=== PATIENT | female | born 1955 | race Caucasian/White ===

== ENCOUNTER 2019-10-12 08:09 | Outpatient (CLI) | payer BC, SELFPAY ==
--- NOTE | ~2019-10-12 | MM_ITS ---
EXAMINATION: MM screening [place] BI w cindy HISTORY: Screening mammogram TECHNIQUE: Craniocaudal and mediolateral oblique 3-D tomosynthesis images were obtained and synthetic 2-D images were generated. CAD analysis was submitted and interpreted. COMPARISON: Comparison to multiple prior studies sequentially, with oldest reviewed study dated 09/2014. BREAST PARENCHYMAL COMPOSITION: There are scattered areas of fibroglandular density. FINDINGS: Stable appearance to right breast asymmetry and left breast mass. There is no evidence of s uspicious mass, calcification, or architectural distortion to suggest malignancy in either breast. Th ere has been no suspicious interval change. IMPRESSION: 1. No mammographic evidence of malignancy. 2. Recommend routine screening mammography in one year. BI-RADS CATEGORY 2 - BENIGN FINDINGS Reviewed, dictated and finalized at location A. GE REGISTER NURSE
== END 2019-10-12 08:10 | disposition home or self-care (01) ==
PROVIDERS: PCP Family Medicine; Visit Provider Family Medicine
DX: Z12.31 Encounter for screening mammogram for malignant neoplasm of breast (principal)
CPT/HCPCS: 77063; 77067

== ENCOUNTER 2020-07-18 12:44 | Outpatient (CLI) | payer MEDICARE, SELFPAY ==
[2020-07-18 13:03] LABS: Basophils Absolute Auto 0.1 K/mm3 (0.0-0.1); Basophils Percent Auto 0.9 % (0.2-1.2); Eosinophils Absolute Auto 0.1 K/mm3 (0-0.3); Hematocrit 49.6 % (37.0-47.0); Hemoglobin 16.6 g/dL (12.0-15.0); Immature Granulocyte Absolute 0.05 K/mm3 (0.00-0.031); Immature Granulocyte Percent A 0.5 % (0-0.5); Lymphocytes Absolute Auto 4.35 K/mm3 (0.9-3.2); Lymphocytes Percent Auto 41.7 % (18.3-44.2); Mean Corpuscular HGB Conc 33.5 g/dl (32-36); Mean Corpuscular Hemoglobin 29.6 pg (26-34); Mean Corpuscular Volume 88.4 fl (80-100); Mean Platelet Volume 9.5 fl (7.4-10.4); Monocytes Absolute Auto 0.9 K/mm3 (0.1-0.6); Monocytes Percent Auto 8.8 % (2.6-8.5); Neutrophils Absolute Auto 4.9 K/mm3 (1.3-6.7); Neutrophils Percent Auto 47.1 % (45.5-73.1); Platelet Count Result 241 k/mm3 (150-375); Red Blood Count 5.61 M/mm3 (4.2-5.4); Red Cell Distribution Width 13.1 % (11.5-14.5); White Blood Count 10.4 K/mm3 (4.5-10.0)
[2020-07-19 09:11] LABS: Blood Urea Nitrogen 13 mg/dL (8-26); Carbon Dioxide 20 mmol/L (22-30); Chloride 108 mmol/L (98-109); Estimated Glomerular Filt Rate > 60; Glucose 133 mg/dL (70-105); Potassium 3.4 mmol/L (3.5-4.9); Sodium 140 mmol/L (138-146)
== END 2020-07-18 12:45 | disposition home or self-care (01) ==
LOC: ANHLAB 12:49
PROVIDERS: PCP Family Medicine; Visit Provider Internal Medicine Hematology & Oncology
DX: D75.1 Secondary polycythemia (principal)
CPT/HCPCS: 36415; 80048; 85025

== ENCOUNTER 2020-12-11 16:31 | Outpatient (CLI) | payer MEDICARE, SELFPAY ==
--- NOTE | ~2020-12-11 | MM_ITS ---
EXAMINATION: MM screening [place] BI w cindy HISTORY: Screening TECHNIQUE: Craniocaudal and mediolateral oblique 3-D tomosynthesis images were obtained and synthetic 2-D images were generated. CAD analysis was submitted and interpreted. COMPARISON: Comparison to multiple prior studies sequentially, with oldest reviewed study dated 11/02. BREAST PARENCHYMAL COMPOSITION: Breast composed of scattered areas of fibroglandular density. FINDINGS: Bilateral breast asymmetries are stable. There is no evidence of suspicious mass, calcific ation, or architectural distortion to suggest malignancy in either breast. There has been no suspicio us interval change. IMPRESSION: 1. No mammographic evidence of malignancy. 2. Recommend routine screening mammography in one year. BI-RADS Category 2: Benign finding(s). Reviewed, dictated and finalized at location A.
== END 2020-12-11 16:32 | disposition home or self-care (01) ==
PROVIDERS: PCP Family Medicine; Visit Provider Family Medicine
DX: Z12.31 Encounter for screening mammogram for malignant neoplasm of breast (principal)
CPT/HCPCS: 77063; 77067

== ENCOUNTER 2022-06-10 12:58 | Outpatient (CLI) | payer MEDICARE, SELFPAY ==
--- NOTE | ~2022-06-10 | MM_ITS ---
EXAMINATION: MM screening [place] BI w cindy HISTORY: Screening TECHNIQUE: Craniocaudal and mediolateral oblique 3-D tomosynthesis images were obtained and synthetic 2-D images were generated. CAD analysis was submitted and interpreted. COMPARISON: Comparison to multiple prior studies sequentially, with oldest reviewed study dated 11/02. BREAST PARENCHYMAL COMPOSITION: There are scattered areas of fibroglandular density. FINDINGS: Bilateral breast asymmetries and calcifications are stable. There is no evidence of suspici ous mass, calcification, or architectural distortion to suggest malignancy in either breast. There martinez s been no suspicious interval change. IMPRESSION: 1. No mammographic evidence of malignancy. 2. Recommend routine screening mammography in one year. BI-RADS Category 2: Benign finding(s). Reviewed, dictated and finalized at location A.
== END 2022-06-10 12:59 | disposition home or self-care (01) ==
PROVIDERS: PCP Family Medicine; Visit Provider Family Medicine
DX: Z12.31 Encounter for screening mammogram for malignant neoplasm of breast (principal)
CPT/HCPCS: 77063; 77067

== ENCOUNTER 2022-07-01 13:12 | Outpatient (CLI) | payer MEDICARE, SELFPAY ==
--- NOTE | ~2022-07-01 | DEXA_ITS ---
Bone Density Report Name: JACKLYN ORTIZ Age: 66 Sex: Female Ethnicity: White Date of : 1955 Indication: postmenopausal osteoporosis; monitoring treatment; parental hip fracture; prior fracture; hysterectomy; Referring Provider: CAROL RENTERIA Study: Bone densitometry was performed. Exam Date: July 01, 2022 Accession number: [id number] Bone Density: Region BMD T-score Z-score Classification AP Spine(L1-L4) 0.750 -2.7 -0.8 Osteoporosis Femoral Neck (Left) 0.400 -4.0 -2.4 Osteoporosis Total Hip (Left) 0.446 -4.1 -2.7 Osteoporosis Femoral Neck (Right) 0.456 -3.5 -1.9 Osteoporosis Total Hip (Right) 0.500 -3.6 -2.3 Osteoporosis Total Hip Mean 0.473 -3.9 -2.5 Osteoporosis World Health Organization criteria for BMD impression classify patients as: Normal (T-score at or above -1.0), Osteopenia (T-score between -1.0 and -2.5), or Osteoporosis (T-score at or below -2.5). 10-year Fracture Risk: FRAX not reported because: Some T-score for Spine Total or Hip Total or Femoral Neck at or below -2.5 Treated for osteoporosis Previous Exams: Region Exam Age BMD T-score BMD Change BMD Change Date g/cm2 vs Baseline vs Previous AP Spine (L1-L4) 07/01/2022 66 0.750 -2.7 -0.017 (-2.2%) -0.017 (-2.2%) 04/09/2017 61 0.767 -2.5 Total Hip(Left) 07/01/2022 66 0.446 -4.1 -0.182 (-29.0% -0.182 (-29.0% 04/09/2017 61 0.628 -2.6 Total Hip(Right) 07/01/2022 66 0.500 -3.6 -0.100 (-16.6% -0.100 (-16.6% 04/09/2017 61 0.599 -2.8 *Denotes significance at 95% confidence level, LSC for AP Spine = 0.022 g/cm2, LSC for Total Hip = 0.027 g/cm2 # Denotes dissimilar scan types or analysis methods Clinical Information Provided by Patient: Has had a low trauma fracture Parent has had a hip fracture Is being treated for osteoporosis Has used the following medications: Vitamin D, Calcium Has the following medical conditions: Hysterectomy Patient maximum height was 68 Menopause Age: 42 No regular weight bearing exercise Does not regularly consume dairy products Drinks caffeinated beverages Onset of menses at age 12 Number of children 0 Impression: The patient has established osteoporosis, based on the Left Total Hip T-score and the existence of a prior fracture. The patient has risk factors, including: parental hip fracture, previous fracture. The BMD for the Total Hip(Right) decreased, changing by -16.6% since the last DXA exam. Discussion: SI
== END 2022-07-01 13:13 | disposition home or self-care (01) ==
PROVIDERS: PCP Family Medicine; Visit Provider Nurse Practitioner Gerontology
DX: M81.0 Age-related osteoporosis without current pathological fracture (principal)
CPT/HCPCS: 77080

== ENCOUNTER 2023-02-23 01:46 | Day surgery (SDC) | payer MEDICARE, SELFPAY ==
[2023-02-12 11:30] VITALS: BMI 25.1
[2023-02-23 11:08] VITALS: BP 106/85; PULSE 76; RESP 16; TEMP 36.1; O2SAT 95
--- NOTE | 2023-02-23 11:08 | PM.HPGS ---
History of Present Illness History of Present Illness Consent: Risks, benefits, and alternatives have been discussed and questions answered. Patient agrees to proceed with procedure. Chief complaint: positive cologuard test Narrative: Nicanor Serna is a 67 year old female Presents for colonoscopy. Patient recently found have a positive Cologuard test. Patient reports she has had no bleeding. Her family history noncontributory. She does have a tendency towards constipation the improves on taking milk of magnesia. Patient presents today for colonoscopy to evaluate positive Cologuard test. Review of Systems Review of Systems: Review of systems noncontributory. 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) Hepatic steatosis PAD (peripheral artery disease) Surgical History Surgical History Hx of hysterectomy S/P peripheral artery angioplasty with stent placement Family History Family History Mother Hypertension Cerebrovascular accident Sibling Hypertension Cerebrovascular accident Father Family history of lung cancer, Onset Age: 63 Patient's father is Social History Social History (Updated 01/28/23 @ 09:48 by Ana Paula Umana) Social History: Smoking packs per day: 0.5 Smoking cigarettes per day: 10.0 Years smoked: 40 Smoking pack-years: 20.00 Smoking status: Current every day smoker Tobacco type: cigarettes Second hand tobacco smoke exposure: Yes Smoking end date: 08/09/16 Alcohol intake: never Substance use: never Substance use type: does not use Lack of Transportation: No Lack of Food: Never True Current Housing: I Have Housing Concerned About Future Housing: No Difficulty Paying Gas/Electric Bills: No Difficulty Paying for Meds: No Currently Unemployed: YES Education: Decline to Answer Difficulty w/ Childcare or Family Care: No Living arrangements: with family Occupation/Education: retired Gender identity (if verbalized by the patient): Female Sexual Orientation (if Verbalized by the Patient): Straight or Heterosexual Spiritual care concerns: No Meds Home Medications and Allergies Home Medications Medication Instructions Recorded Confirmed Type aspirin 325 mg tablet 325 mg PO DAILY 10/17/19 02/12/23 History umeclidinium 62.5 mcg-vilanterol 1 inh inhalation DAILY #60 ea 06/11/21 02/12/23 Rx 25 mcg/actuation powdr for inhalation (Anoro Ellipta) trazodone 50 mg tablet See Rx Instructions .Route 10/17/21 02/12/23 Rx .COMPLEX #90 tabs buspirone 5 mg tablet See Rx Instructions .Route 11/18/21 02/12/23 Rx .COMPLEX #90 tabs alendronate 70 mg tablet See Rx Instructions .Route 06/29/22 02/12/23 Rx .COMPLEX #12 tabs clonidine HCl 0.2 mg tablet See Rx Instructions .Route 12/07/22 02/12/23 Rx .COMPLEX #180 tabs amlodipine 10 mg tablet See Rx Instructions .Route 01/21/23 02/12/23 Rx .COMPLEX #90 tabs clopidogrel 75 mg tablet See Rx Instructions .Route 01/21/23 02/12/23 Rx .COMPLEX #90 tabs varenicline 0.5 mg (11)-1 mg (42) See Rx Instructions PO PER PKG DIR 01/28/23 02/12/23 Rx tablets in a dose pack #53 ea atorvastatin 20 mg tablet See Rx Instructions .Route 02/01/23 02/12/23 Rx .COMPLEX #100 tabs sodium,potassium,mag sulfates 17.5 See Rx Instructions PO .COMPLEX 02/01/23 02/12/23 Rx gram-3.13 gram-1.6 gram oral soln #354 mL (Suprep Bowel Prep Kit) biotin 10,000 mcg capsule 10,000 mcg PO DAILY 02/12/23 02/12/23 History cholecalciferol (vi
[2023-02-23] MEDS: LACTATED RINGERS 1,000 ML 150 ML IV CONT (11:47)
--- NOTE | 2023-02-23 12:20 | WPDANESEPPF ---
Anes - Initial Pre Proc Eval Procedure: Operation Date: 02/23/23 12:30 Proposed Procedures p Colonoscopy - Maurizio Delgado MD Date/Time: 02/23/23 12:20 Surgeon: Maurizio Delgado MD Pre Op Diagnosis: positive cologuard test Patient Data Age: 67 Gender: F Height: 1.73 m Weight: 72.4 kg Last Vital Signs Temp 97.0 F L 02/23/23 11:08 Pulse 76 02/23/23 11:08 Resp 16 02/23/23 11:08 BP 106/85 02/23/23 11:08 Pulse Ox 95 02/23/23 11:08 O2 Del Method Room Air 02/23/23 11:08 Allergies Allergy/AdvReac Type Severity Reaction Status Date / Time No Known Allergies Allergy Verified 02/23/23 11:07 Home Medications Medication Instructions Recorded Confirmed Type aspirin 325 mg tablet 325 mg PO DAILY 10/17/19 02/23/23 History umeclidinium 62.5 mcg-vilanterol 1 inh inhalation DAILY #60 ea 06/11/21 02/23/23 Rx 25 mcg/actuation powdr for inhalation (Anoro Ellipta) trazodone 50 mg tablet See Rx Instructions .Route 10/17/21 02/23/23 Rx .COMPLEX #90 tabs buspirone 5 mg tablet See Rx Instructions .Route 11/18/21 02/23/23 Rx .COMPLEX #90 tabs alendronate 70 mg tablet See Rx Instructions .Route 06/29/22 02/23/23 Rx .COMPLEX #12 tabs clonidine HCl 0.2 mg tablet See Rx Instructions .Route 12/07/22 02/23/23 Rx .COMPLEX #180 tabs amlodipine 10 mg tablet See Rx Instructions .Route 01/21/23 02/23/23 Rx .COMPLEX #90 tabs clopidogrel 75 mg tablet See Rx Instructions .Route 01/21/23 02/23/23 Rx .COMPLEX #90 tabs varenicline 0.5 mg (11)-1 mg (42) See Rx Instructions PO PER PKG DIR 01/28/23 02/23/23 Rx tablets in a dose pack #53 ea atorvastatin 20 mg tablet See Rx Instructions .Route 02/01/23 02/23/23 Rx .COMPLEX #100 tabs sodium,potassium,mag sulfates 17.5 See Rx Instructions PO .COMPLEX 06/26/23 07/18/23 Rx gram-3.13 gram-1.6 gram oral soln #354 mL (Suprep Bowel Prep Kit) biotin 10,000 mcg capsule 10,000 mcg PO DAILY 02/12/23 02/23/23 History cholecalciferol (vitamin D3) 10 10 mcg PO DAILY 02/12/23 02/23/23 History mcg (400 unit) capsule (Vitamin D3) Patient hx anesthesia problems: none Family hx anesthesia problems: none Results Review: All pre-operative results and documents have been reviewed as part of the pre-operative evaluation. 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) Hepatic steatosis PAD (peripheral artery disease) Surgical History Surgical History Hx of hysterectomy S/P peripheral artery angioplasty with stent placement Family History Family History Mother Hypertension Cerebrovascular accident Sibling Hypertension Cerebrovascular accident Father Family history of lung cancer, Onset Age: 63 Patient's father is Social History Social History (Updated 01/28/23 @ 09:48 by Ana Paula Umana) Social History: Smoking packs per day: 0.5 Smoking cigarettes per day: 10.0 Years smoked: 40 Smoking pack-years: 20.00 Smoking status: Current every day smoker Tobacco type: cigarettes Second hand tobacco smoke exposure: Yes Smoking end date: 08/09/16 Alcohol intake: never Substance use: never Substance use type: does not use Lack of Transportation: No Lack of Food: Never True Current Housing: I Have Housing Concerned About Future Housing: No Difficulty Paying Gas/Electric Bills: No Difficulty Paying for Meds: No Currently Unemployed: YES Education: Decline to Answer Difficulty w/ Childcare or Family Care: No Living arrangements: with fa
[2023-02-23 13:17] VITALS: BP 102/53; PULSE 64; RESP 30; O2SAT 93
== END 2023-02-23 13:50 | disposition home or self-care (01) ==
PROVIDERS: PCP Family Medicine; Visit Provider Internal Medicine Gastroenterology
PROC: 0DJD8ZZ Inspection of Lower Intestinal Tract, Via Natural or Artificial Opening Endoscopic (ICD-10-PCS; CPT 45378; principal; 2023-02-23 12:30)
DX: R19.5 Other fecal abnormalities (principal); D12.5 Benign neoplasm of sigmoid colon; K64.8 Other hemorrhoids; K63.5 Polyp of colon; J44.9 Chronic obstructive pulmonary disease, unspecified; F41.1 Generalized anxiety disorder; D12.3 Benign neoplasm of transverse colon; I69.359 Hemiplegia and hemiparesis following cerebral infarction affecting unspecified side; K76.0 Fatty (change of) liver, not elsewhere classified; I73.9 Peripheral vascular disease, unspecified; F17.210 Nicotine dependence, cigarettes, uncomplicated; Z79.51 Long term (current) use of inhaled steroids; Z79.02 Long term (current) use of antithrombotics/antiplatelets
CPT/HCPCS: 45385; 88305; J2704; J7120

== ENCOUNTER 2023-10-25 12:10 | Outpatient (CLI) | payer MEDICARE, SELFPAY ==
--- NOTE | ~2023-10-25 | MM_ITS ---
EXAMINATION: MM screening [place] BI w cindy HISTORY: Screening TECHNIQUE: Craniocaudal and mediolateral oblique 3-D tomosynthesis images were obtained and synthetic 2-D images were generated. CAD analysis was submitted and interpreted. COMPARISON: Comparison to multiple prior studies sequentially, with oldest reviewed study dated 09/2014. BREAST PARENCHYMAL COMPOSITION: Not dense: There are scattered areas of fibroglandular density. FINDINGS: There is no evidence of suspicious mass, calcification, or architectural distortion to sugg est malignancy in either breast. There has been no suspicious interval change. IMPRESSION: 1. No mammographic evidence of malignancy. 2. Recommend routine screening mammography in one year. BI-RADS Category 1: Negative Reviewed, dictated and finalized at location A.
== END 2023-10-25 12:11 ==
PROVIDERS: PCP Family Medicine; Visit Provider Family Medicine
DX: Z12.31 Encounter for screening mammogram for malignant neoplasm of breast (principal)
CPT/HCPCS: 77063; 77067

== ENCOUNTER 2024-12-06 11:29 | Outpatient (CLI) | payer MEDICARE, SELFPAY ==
--- NOTE | ~2024-12-06 | XR_ITS ---
Lumbosacral Spine: AP and lateral views Clinical History: Pain Findings: The normal lordotic curve is maintained. The vertebral bodies and posterior elements are i ntact. There is moderate facet arthropathy, especially the lower lumbar spine. There is mild degenera tive change in the lumbar spine.. The sacroiliac joints are normally outlined. Impression: Mild to mild-moderate degenerative spondylosis, as above. Reviewed, dictated and finalized at location M. Impression: Mild to mild-moderate degenerative spondylosis, as above.
--- NOTE | ~2024-12-06 | XR_ITS ---
Left Knee Technique: AP, lateral, and sunrise views were obtained. Clinical History: Pain Findings: No fracture or dislocation is seen. Osseous alignment is anatomic. Joint spaces are preserv ed without degenerative or erosive change. Large vascular stent noted in the posterior soft tissues o f the mid to distal thigh. No joint effusion is seen. Impression: No acute abnormality. Reviewed, dictated and finalized at location . Impression: No acute abnormality.
--- OUTSIDE RECORDS SUMMARY | 2024-12-06 13:02 | XMS_ITS | Encounter Summary ---
Author Organization [facility] Address [address] [place] [address] Care Team Providers Care Ambulatory Services Representative Name Role Phone Shruti Ribeiro MD Primary Care Provider [phone]- [phone] Encounter Details Date Type Department Care Team (Late st Contact Info) Description 06/23/2000 Outpatient Historical [facility] Primary Care - [address] [place] [phone] Noel Virgen DO * Social History Tobacco Use Types Packs/Day Years Used Date Smoking Tobacco: Never Assessed Comments Unknown Sex and Gender Information Value Date Recorded Sex Assigned at Not on file Legal Sex Female 4:04 AM KISS 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 Gender Identity Not on file Sexual Orientation Not on file documented as of this encounter Plan of Treatment Upcoming Encounters Date Type Department Care Team (Late st Contact Info) Description 01/10/2025 11:15 AM CDT Office Visit [facility] Oncology and Hematology - [place] [address] [facility] [address] [place] [address] Gilberto Montes De Oca MD [address] [facility] [address] [place] [address] documented as of this encounter Visit Diagnoses Not on filedocumented in this encounter Care Teams Ambulatory Services Representative Relationship Specialty Start Date End Date Shruti Ribeiro MD PCP - General Family Practice 09/28/18 documented as of this encounter
--- OUTSIDE RECORDS SUMMARY | 2024-12-06 13:02 | XMS_ITS | Encounter Summary ---
Author Organization [facility] Address 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 Gender Identity Not on file Sexual Orientation Not on file documented as of this encounter Plan of Treatment Upcoming Encounters Date Type Department Care Team (Late st Contact Info) Description 01/10/2025 11:15 AM CDT Office Visit [facility] Oncology and Hematology - [place] [address] [facility] [address] [place] [address] Gilberto Montes De Oca MD [address] [facility] [address] [place] [address] documented as of this encounter Visit Diagnoses Not on filedocumented in this encounter Care Teams Electronic Train Control Technician Relationship Specialty Start Date End Date Shruti Ribeiro MD PCP - General Family Practice 09/28/18 documented as of this encounter
--- OUTSIDE RECORDS SUMMARY | 2024-12-06 13:02 | XMS_ITS | Encounter Summary ---
Author Organization [facility] Address [address] [place] [address] Care Team Providers Care Medical Library Assistant Name Role Phone Shruti Ribeiro MD Primary Care Provider [phone]- [phone] Encounter Details Date Type Department Care Team (Late st Contact Info) Description 04/15/2005 Outpatient Historical [facility] Primary Care - [address] [place] [phone] Noel Virgen DO * Social History Tobacco Use Types Packs/Day Years Used Date Smoking Tobacco: Never Assessed Comments Unknown Sex and Gender Information Value Date Recorded Sex Assigned at Not on file Legal Sex Female 4:04 AM X RAY NURSE Gender Identity Not on file Sexual Orientation Not on file documented as of this encounter Plan of Treatment Upcoming Encounters Date Type Department Care Team (Late st Contact Info) Description 01/10/2025 11:15 AM CDT Office Visit [facility] Oncology and Hematology - [place] [address] [facility] [address] [place] [address] Gilberto Montes De Oca MD [address] [facility] [address] [place] [address] documented as of this encounter Visit Diagnoses Not on filedocumented in this encounter Care Teams Medical Library Assistant Relationship Specialty Start Date End Date Shruti Ribeiro MD PCP - General Family Practice 09/28/18 documented as of this encounter
--- OUTSIDE RECORDS SUMMARY | 2024-12-06 13:02 | XMS_ITS | Encounter Summary ---
Author Organization [facility] Address 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 Gender Identity Not on file Sexual Orientation Not on file documented as of this encounter Plan of Treatment Upcoming Encounters Date Type Department Care Team (Late st Contact Info) Description 01/10/2025 11:15 AM CDT Office Visit [facility] Oncology and Hematology - [place] [address] [facility] [address] [place] [address] Gilberto Montes De Oca MD [address] [facility] [address] [place] [address] documented as of this encounter Visit Diagnoses Not on filedocumented in this encounter Care Teams Dermatology Specialist Relationship Specialty Start Date End Date Shruti Ribeiro MD PCP - General Family Practice 09/28/18 documented as of this encounter
--- OUTSIDE RECORDS SUMMARY | 2024-12-06 13:02 | XMS_ITS | Encounter Summary ---
Author Organization [facility] Address [address] [place] [address] Care Team Providers Care Smelter Liner Name Role Phone Shruti Ribeiro MD Primary Care Provider +1- [phone] Encounter Details Date Type Department Care Team (Late st Contact Info) Description 04/08/[address] [facility] Primary Care - [address] [place] [phone] Noel Virgen DO * Social History Tobacco Use Types Packs/Day Years Used Date Smoking Tobacco: Never Assessed Comments Unknown Sex and Gender Information Value Date Recorded Sex Assigned at Not on file Legal Sex Female 4:04 AM CHARGE NURSE Gender Identity Not on file Sexual Orientation Not on file documented as of this encounter Plan of Treatment Upcoming Encounters Date Type Department Care Team (Late st Contact Info) Description 01/10/2025 11:15 AM CDT Office Visit [facility] Oncology and Hematology - [place] [address] [facility] [address] [place] [address] Gilberto Montes De Oca MD [address] [facility] [address] [place] [address] documented as of this encounter Visit Diagnoses Not on filedocumented in this encounter Care Teams Smelter Liner Relationship Specialty Start Date End Date Shruti Ribeiro MD PCP - General Family Practice 09/28/18 documented as of this encounter
--- OUTSIDE RECORDS SUMMARY | 2024-12-06 13:02 | XMS_ITS | Encounter Summary ---
Author Organization [facility] Address [address] [place] [address] Care Team Providers Care Bid Writer Name Role Phone Shruti Ribeiro MD Primary Care Provider +1- [phone] Encounter Details Date Type Department Care Team (Late st Contact Info) Description 06/13/2002 Outpatient Historical [facility] Primary Care - [address] [place] [phone] Noel Virgen DO * Social History Tobacco Use Types Packs/Day Years Used Date Smoking Tobacco: Never Assessed Comments Unknown Sex and Gender Information Value Date Recorded Sex Assigned at Not on file Legal Sex Female 4:04 AM DREDGE PUMPER Gender Identity Not on file Sexual Orientation Not on file documented as of this encounter Plan of Treatment Upcoming Encounters Date Type Department Care Team (Late st Contact Info) Description 01/10/2025 11:15 AM CDT Office Visit [facility] Oncology and Hematology - [place] [address] [facility] [address] [place] [address] Gilberto Montes De Oca MD [address] [facility] [address] [place] [address] documented as of this encounter Visit Diagnoses Not on filedocumented in this encounter Care Teams Bid Writer Relationship Specialty Start Date End Date Shruti Ribeiro MD PCP - General Family Practice 09/28/18 documented as of this encounter
--- OUTSIDE RECORDS SUMMARY | 2024-12-06 13:02 | XMS_ITS | Clinical Summary ---
Author Organization [facility] Address [address] [place] [address] Care Team Providers Care Chemical Machine Tender Name Role Phone Unavailable Primary Care Provider Unavailabl e Social History Tobacco Use Types Packs/Day Years Used Date Smoking Tobacco: Never Assessed Comments Unknown Sex and Gender Information Value Date Recorded Sex Assigned at Not on file Legal Sex Female 11:49 AM CDT Gender Identity Not on file Sexual Orientation Not on file Plan of Treatment Health Maintenance Due Date Last Done Comments Colorectal Cancer Screening Colonoscopy (10 Years) 1955 Hepatitis C 1973 DTaP, Tdap and Td Vaccines ( 1 - Tdap) 1974 Mammogram Screening 1995 Pneumococcal Vaccine: 50+ Ye ars (1 of 1 - PCV) 2005 Zoster Vaccines (1 of 2) 2005 Dexa Scan (General) 2020 COVID-19 Vaccine ( - 2023-2 5 season) 2024 RSV Immunization or 60+ Years (1 - 1-dose 75+ series) 2030 Meningococcal B Vaccine Aged Out No l onger eligible based on patient's age to complete this topic Meningococcal Vaccine Aged Out No eladio niall eligible based on patient's age to complete this topic RSV Immunizations Under 20 Months Aged Out No longer eligible based on patient's age to complete this topic
--- OUTSIDE RECORDS SUMMARY | 2024-12-06 13:02 | XMS_ITS | Encounter Summary ---
Author Organization [facility] Address [address] [place] [address] Care Team Providers Care Wildlife Conservation Professor Name Role Phone Shruti Ribeiro MD Primary Care Provider +1- [phone] Encounter Details Date Type Department Care Team (Late st Contact Info) Description 06/09/2000 Outpatient Historical [facility] Primary Care - [address] [place] [phone] Noel Virgen DO * Social History Tobacco Use Types Packs/Day Years Used Date Smoking Tobacco: Never Assessed Comments Unknown Sex and Gender Information Value Date Recorded Sex Assigned at Not on file Legal Sex Female 4:04 AM COMMUNICATIONS ADVISOR Gender Identity Not on file Sexual Orientation Not on file documented as of this encounter Plan of Treatment Upcoming Encounters Date Type Department Care Team (Late st Contact Info) Description 01/10/2025 11:15 AM CDT Office Visit [facility] Oncology and Hematology - [place] [address] [facility] [address] [place] [address] Gilberto Montes De Oca MD [address] [facility] [address] [place] [address] documented as of this encounter Visit Diagnoses Not on filedocumented in this encounter Care Teams Wildlife Conservation Professor Relationship Specialty Start Date End Date Shruti Ribeiro MD PCP - General Family Practice 09/28/18 documented as of this encounter
--- OUTSIDE RECORDS SUMMARY | 2024-12-06 13:02 | XMS_ITS | Encounter Summary ---
Author Organization [facility] Address 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 Gender Identity Not on file Sexual Orientation Not on file documented as of this encounter Plan of Treatment Upcoming Encounters Date Type Department Care Team (Late st Contact Info) Description 01/10/2025 11:15 AM CDT Office Visit [facility] Oncology and Hematology - [place] [address] [facility] [address] [place] [address] Gilberto Montes De Oca MD [address] [facility] [address] [place] [address] documented as of this encounter Visit Diagnoses Not on filedocumented in this encounter Care Teams Needle Punch Operator Relationship Specialty Start Date End Date Shruti Ribeiro MD PCP - General Family Practice 09/28/18 documented as of this encounter
--- OUTSIDE RECORDS SUMMARY | 2024-12-06 13:02 | XMS_ITS | Encounter Summary ---
Author Organization [facility] Address 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 200 [place] [address] Gilberto Montes De Oca MD [address] [facility] [address] [place] [address] documented as of this encounter Visit Diagnoses Not on filedocumented in this encounter Care Teams 911 Dispatcher Relationship Specialty Start Date End Date Shruti Ribeiro MD PCP - General Family Practice 09/28/18 documented as of this encounter
--- OUTSIDE RECORDS SUMMARY | 2024-12-06 13:02 | XMS_ITS | Encounter Summary ---
Author Organization [facility] Address 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 Gender Identity Not on file Sexual Orientation Not on file documented as of this encounter Plan of Treatment Upcoming Encounters Date Type Department Care Team (Late st Contact Info) Description 01/10/2025 11:15 AM CDT Office Visit [facility] Oncology and Hematology - [place] [address] [facility] 200 [place] [address] Gilberto Montes De Oca MD [address] [facility] [address] [place] [address] documented as of this encounter Visit Diagnoses Not on filedocumented in this encounter Care Teams Plane Runner Relationship Specialty Start Date End Date Shruti Ribeiro MD PCP - General Family Practice 09/28/18 documented as of this encounter
--- OUTSIDE RECORDS SUMMARY | 2024-12-06 13:02 | XMS_ITS | Encounter Summary ---
Author Organization [facility] Address 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 Gender Identity Not on file Sexual Orientation Not on file documented as of this encounter Plan of Treatment Upcoming Encounters Date Type Department Care Team (Late st Contact Info) Description 01/10/2025 11:15 AM CDT Office Visit [facility] Oncology and Hematology - [place] [address] [facility] 200 [place] [address] Gilberto Montes De Oca MD [address] [facility] [facility] [address] [place] [address] documented as of this encounter Visit Diagnoses Not on filedocumented in this encounter Care Teams Fleecer Relationship Specialty Start Date End Date Shruti Ribeiro MD PCP - General Family Practice 09/28/18 documented as of this encounter
--- OUTSIDE RECORDS SUMMARY | 2024-12-06 13:02 | XMS_ITS | Encounter Summary ---
Author Organization [facility] Address 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 Gender Identity Not on file Sexual Orientation Not on file documented as of this encounter Plan of Treatment Upcoming Encounters Date Type Department Care Team (Late st Contact Info) Description 01/10/2025 11:15 AM CDT Office Visit [facility] Oncology and Hematology - [place] [address] [facility] 200 [place] [address] Gilberto Montes De Oca MD [address] [facility] [address] [place] [address] documented as of this encounter Visit Diagnoses Not on filedocumented in this encounter Care Teams Cv Tech Relationship Specialty Start Date End Date Shruti Ribeiro MD PCP - General Family Practice 09/28/18 documented as of this encounter
--- OUTSIDE RECORDS SUMMARY | 2024-12-06 13:02 | XMS_ITS | Encounter Summary ---
Author Organization [facility] Address 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 Gender Identity Not on file Sexual Orientation Not on file documented as of this encounter Plan of Treatment Upcoming Encounters Date Type Department Care Team (Late st Contact Info) Description 01/10/2025 11:15 AM CDT Office Visit [facility] Oncology and Hematology - [place] [address] [facility] 200 [place] [address] Gilberto Montes De Oca MD [address] [facility] [address] [place] [address] documented as of this encounter Visit Diagnoses Diagnosis Other screening mammogram- Primary documented in this encounter Care Teams Rack Maker Relationship Specialty Start Date End Date Shruti Ribeiro MD PCP - General Family Practice 09/28/18 documented as of this encounter
--- OUTSIDE RECORDS SUMMARY | 2024-12-06 13:02 | XMS_ITS | Encounter Summary ---
Author Organization [facility] Address 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 Gender Identity Not on file Sexual Orientation Not on file documented as of this encounter Plan of Treatment Upcoming Encounters Date Type Department Care Team (Late st Contact Info) Description 01/10/2025 11:15 AM CDT Office Visit [facility] Oncology and Hematology - [place] [address] [facility] 200 [place] [address] Gilberto Montes De Oca MD [address] [facility] [address] [place] [address] documented as of this encounter Visit Diagnoses Not on filedocumented in this encounter Care Teams Assignment Clerk Relationship Specialty Start Date End Date Shruti Ribeiro MD PCP - General Family Practice 09/28/18 documented as of this encounter
--- OUTSIDE RECORDS SUMMARY | 2024-12-06 13:02 | XMS_ITS | Encounter Summary ---
Author Organization [facility] Address 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 Gender Identity Not on file Sexual Orientation Not on file documented as of this encounter Plan of Treatment Upcoming Encounters Date Type Department Care Team (Late st Contact Info) Description 01/10/2025 11:15 AM CDT Office Visit [facility] Oncology and Hematology - [place] [address] [facility] 200 [place] [address] Gilberto Montes De Oca MD [address] [facility] [address] [place] [address] documented as of this encounter Visit Diagnoses Not on filedocumented in this encounter Care Teams Real Estate Associate Attorney Relationship Specialty Start Date End Date Shruti Ribeiro MD PCP - General Family Practice 09/28/18 documented as of this encounter
--- OUTSIDE RECORDS SUMMARY | 2024-12-06 13:02 | XMS_ITS | Encounter Summary ---
Author Organization [facility] Address 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 Gender Identity Not on file Sexual Orientation Not on file documented as of this encounter Plan of Treatment Upcoming Encounters Date Type Department Care Team (Late st Contact Info) Description 01/10/2025 11:15 AM CDT Office Visit [facility] Oncology and Hematology - [place] [address] [facility] 200 [place] [address] Gilberto Montes De Oca MD [address] [facility] [address] [place] [address] documented as of this encounter Visit Diagnoses Not on filedocumented in this encounter Care Teams Coin Rolling Machine Operator Relationship Specialty Start Date End Date Shruti Ribeiro MD PCP - General Family Practice 09/28/18 documented as of this encounter
--- OUTSIDE RECORDS SUMMARY | 2024-12-06 13:02 | XMS_ITS | Encounter Summary ---
Author Organization [facility] Address 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 Gender Identity Not on file Sexual Orientation Not on file documented as of this encounter Plan of Treatment Upcoming Encounters Date Type Department Care Team (Late st Contact Info) Description 01/10/2025 11:15 AM CDT Office Visit [facility] Oncology and Hematology - [place] [address] [facility] 200 [place] [address] Gilberto Montes De Oca MD [address] [facility] [address] [place] [address] documented as of this encounter Visit Diagnoses Not on filedocumented in this encounter Care Teams Fruit Pitter Relationship Specialty Start Date End Date Shruti Ribeiro MD PCP - General Family Practice 09/28/18 documented as of this encounter
--- OUTSIDE RECORDS SUMMARY | 2024-12-06 13:02 | XMS_ITS | Encounter Summary ---
Author Organization [facility] Address 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 Gender Identity Not on file Sexual Orientation Not on file documented as of this encounter Plan of Treatment Upcoming Encounters Date Type Department Care Team (Late st Contact Info) Description 01/10/2025 11:15 AM CDT Office Visit [facility] Oncology and Hematology - [place] [address] [facility] 200 [place] [address] Gilberto Montes De Oca MD [address] [facility] [address] [place] [address] documented as of this encounter Visit Diagnoses Not on filedocumented in this encounter Care Teams Hogshead Wrecker Relationship Specialty Start Date End Date Shruti Ribeiro MD PCP - General Family Practice 09/28/18 documented as of this encounter
--- OUTSIDE RECORDS SUMMARY | 2024-12-06 13:02 | XMS_ITS | Encounter Summary ---
Author Organization [facility] Address 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 Gender Identity Not on file Sexual Orientation Not on file documented as of this encounter Plan of Treatment Upcoming Encounters Date Type Department Care Team (Late st Contact Info) Description 01/10/2025 11:15 AM CDT Office Visit [facility] Oncology and Hematology - [place] [address] [facility] 200 [place] [address] Gilberto Montes De Oca MD [address] [facility] [address] [place] [address] documented as of this encounter Visit Diagnoses Not on filedocumented in this encounter Care Teams Meteorological Engineer Relationship Specialty Start Date End Date Shruti Ribeiro MD PCP - General Family Practice 09/28/18 documented as of this encounter
--- OUTSIDE RECORDS SUMMARY | 2024-12-06 13:02 | XMS_ITS | Encounter Summary ---
Author Organization [facility] Address 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 Gender Identity Not on file Sexual Orientation Not on file documented as of this encounter Plan of Treatment Upcoming Encounters Date Type Department Care Team (Late st Contact Info) Description 01/10/2025 11:15 AM CDT Office Visit [facility] Oncology and Hematology - [place] [address] [facility] 200 [place] [address] Gilberto Montes De Oca MD [address] [facility] [address] [place] [address] documented as of this encounter Visit Diagnoses Not on filedocumented in this encounter Care Teams Artist Mannequin Coloring Relationship Specialty Start Date End Date Shruti Ribeiro MD PCP - General Family Practice 09/28/18 documented as of this encounter
--- OUTSIDE RECORDS SUMMARY | 2024-12-06 13:02 | XMS_ITS | Encounter Summary ---
Author Organization [facility] Address 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 Gender Identity Not on file Sexual Orientation Not on file documented as of this encounter Plan of Treatment Upcoming Encounters Date Type Department Care Team (Late st Contact Info) Description 01/10/2025 11:15 AM CDT Office Visit [facility] Oncology and Hematology - [place] [address] [facility] 200 [place] [address] Gilberto Montes De Oca MD [address] [facility] [address] [place] [address] documented as of this encounter Visit Diagnoses Not on filedocumented in this encounter Care Teams Vaccinator Relationship Specialty Start Date End Date Shruti Ribeiro MD PCP - General Family Practice 09/28/18 documented as of this encounter
--- OUTSIDE RECORDS SUMMARY | 2024-12-06 13:02 | XMS_ITS | Encounter Summary ---
Author Organization [facility] Address 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 Gender Identity Not on file Sexual Orientation Not on file documented as of this encounter Plan of Treatment Upcoming Encounters Date Type Department Care Team (Late st Contact Info) Description 01/10/2025 11:15 AM CDT Office Visit [facility] Oncology and Hematology - [place] [address] [facility] 200 [place] [address] Gilberto Montes De Oca MD [address] [facility] [address] [place] [address] documented as of this encounter Visit Diagnoses Not on filedocumented in this encounter Care Teams Staffing Analyst Relationship Specialty Start Date End Date Shruti Ribeiro MD PCP - General Family Practice 09/28/18 documented as of this encounter
--- OUTSIDE RECORDS SUMMARY | 2024-12-06 13:02 | XMS_ITS | Encounter Summary ---
Author Organization [facility] Address 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 Gender Identity Not on file Sexual Orientation Not on file documented as of this encounter Plan of Treatment Upcoming Encounters Date Type Department Care Team (Late st Contact Info) Description 01/10/2025 11:15 AM CDT Office Visit [facility] Oncology and Hematology - [place] [address] [facility] [address] [place] [address] Gilberto Montes De Oca MD [address] [facility] [address] [place] [address] documented as of this encounter Visit Diagnoses Not on filedocumented in this encounter Care Teams Ring Sewer Relationship Specialty Start Date End Date Shruti Ribeiro MD PCP - General Family Practice 09/28/18 documented as of this encounter
--- OUTSIDE RECORDS SUMMARY | 2024-12-06 13:02 | XMS_ITS | Encounter Summary ---
Author Organization [facility] Address 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 Gender Identity Not on file Sexual Orientation Not on file documented as of this encounter Plan of Treatment Upcoming Encounters Date Type Department Care Team (Late st Contact Info) Description 01/10/2025 11:15 AM CDT Office Visit [facility] Oncology and Hematology - [place] [address] [facility] [address] [place] [address] Gilberto Montes De Oca MD [address] [facility] [address] [place] [address] documented as of this encounter Visit Diagnoses Not on filedocumented in this encounter Care Teams Sieve Grader Tender Relationship Specialty Start Date End Date Shruti Ribeiro MD PCP - General Family Practice 09/28/18 documented as of this encounter
--- OUTSIDE RECORDS SUMMARY | 2024-12-06 13:02 | XMS_ITS | Encounter Summary ---
Author Organization [facility] Address 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 Gender Identity Not on file Sexual Orientation Not on file documented as of this encounter Plan of Treatment Upcoming Encounters Date Type Department Care Team (Late st Contact Info) Description 01/10/2025 11:15 AM CDT Office Visit [facility] Oncology and Hematology - [place] [address] [facility] [address] [place] [address] Gilberto Montes De Oca MD [address] [facility] [address] [place] [address] documented as of this encounter Visit Diagnoses Not on filedocumented in this encounter Care Teams Senior Search Marketing Analyst Relationship Specialty Start Date End Date Shruti Ribeiro MD PCP - General Family Practice 09/28/18 documented as of this encounter
--- OUTSIDE RECORDS SUMMARY | 2024-12-06 13:02 | XMS_ITS | Encounter Summary ---
Author Organization [facility] Address 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 [address] [place] [address] Gilberto Montes De Oca MD [address] [facility] [address] [place] [address] documented as of this encounter Visit Diagnoses Not on filedocumented in this encounter Care Teams Desktop Support Consultant Relationship Specialty Start Date End Date Shruti Ribeiro MD PCP - General Family Practice 09/28/18 documented as of this encounter
--- OUTSIDE RECORDS SUMMARY | 2024-12-06 13:02 | XMS_ITS | Encounter Summary ---
Author Organization [facility] Address 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 Gender Identity Not on file Sexual Orientation Not on file documented as of this encounter Plan of Treatment Upcoming Encounters Date Type Department Care Team (Late st Contact Info) Description 01/10/2025 11:15 AM CDT Office Visit [facility] Oncology and Hematology - [place] [address] [facility] [address] [place] [address] Gilberto Montes De Oca MD [address] [facility] [address] [place] [address] documented as of this encounter Procedures Procedure Name Priority Date/Time Associated Diagnosis Comments TSH Routine 04/20/2007 2:59 PM CDT LIPID PANEL Routine 04/20/2007 2:59 PM CDT COMPREHENSIVE METABOLIC PANEL Routine 04/20/2007 2:59 PM CDT documented in this encounter Results * TSH (04/20/2007 2:59 PM CDT) TSH 1.26 0.27 - 4.20 uU/mL INTERFACE SYSTEM 04/20/2007 2:59 PM CDT Filomena Prieto MD CHEMISTRY ORDERABLES Edited Performing Organization Address [facility] de Phone Number INTERFACE SYSTEM Refer to clinic/hospital department * (ABNORMAL) LIPID PANEL (04/20/2007 2:59 PM CDT) CHOLESTEROL 223(H) 100 - 199 mg/dL INTERFACE SYSTEM TRIGLYCERIDE 196(H) 10 - 149 mg/dL INTERFACE SYSTEM HDL 42 40 - 59 mg/dL INTERFACE SYSTEM CHOL/HDL RATIO 5.3(H) 2.0 - 5.0 INTER FACE SYSTEM LDL CALCULATED 142(H) <=99 mg/dL INTERFACE SYSTEM LIPID PANEL COMMENT See Below INTERFACE SYSTEM Comment: The adult ATP and pediatric NCEP classifications for lipids are available on the [facility] Intranet at: [email or web address] Select: Lab Policies and Procedures,Current Select: Lipid Panel Interpretation 04/20/2007 2:59 PM CDT Filomena Prieto MD CHEMISTRY ORDERABLES Edited Performing Organization Address [facility] de Phone Number INTERFACE SYSTEM Refer to clinic/hospital department * (ABNORMAL) COMPREHENSIVE METABOLIC PANEL (04/20/2007 2:59 PM CDT) GLUCOSE 96 65 - 99 mg/dL INTERFACE SYSTEM CREATININE 0.71 0.51 - 0.95 mg/dL INTERFACE SYSTEM CALCIUM 9.3 8.4 - 10.2 mg/dL INTERFACE SYSTEM ALKALINE PHOSPHATASE 125(H) 35 - 104 U/L INTERFACE SYSTEM AST 41(H) 12 - 32 U/L INTERFACE SYSTEM ALT 59(H) 0 - 31 U/L INTERFACE SYSTEM TOTAL PROTEIN 8.0 6.3 - 8.6 g/dL INTERFACE SYSTEM ALBUMIN 4.4 3.4 - 4.8 g/dL INTERFACE SYSTEM BILIRUBIN TOTAL 0.4 0.2 - 1.0 mg/dL INTERFACE SYSTEM BUN 19 6 - 20 mg/dL INTERFACE SYSTEM SODIUM 138 135 - 145 mmol/L INTERFACE SYSTEM POTASSIUM 3.9 3.5 - 4.9 mmol/L INTERFACE SYSTEM CHLORIDE 102 96 - 108 mmol/L INTERFACE SYSTEM CO2 25 22 - 30 mmol/L INTERFACE SYSTEM GFR, >60 >=60 mL/min/1. 7 sq meter INTERFACE SYSTEM GFR >60 >=60 mL/min/1. 7 sq meter INTERFACE SYSTEM Comment: Estimated GFR rate interpretative information for both Americans and non- Americans is available on the [facility] [place] at: [email or web address]/ideaTree - innovate | mentor | [email or web address] Select: Lab Policies and Procedures Select: Reference Ranges - GFR 04/20/2007 2:59 PM CDT us Filomena Prieto MD CHEMISTRY ORDERABLES Edited INTERFACE SYSTEM Refer to clinic/hospital department documented in this encounter Visit Diagnoses Diagnosis Other malaise and fatigue- Primary documented in this encounter Care Teams Head Porter Relationship Specialty Start Date End Date Shruti Ribeiro MD PCP - General Family Practice 09/28/18 documented as of this encounter"
--- OUTSIDE RECORDS SUMMARY | 2024-12-06 13:02 | XMS_ITS | Encounter Summary ---
Author Organization [facility] Address 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 [address] [place] [address] Gilberto Montes De Oca MD [address] [facility] [address] [place] [address] documented as of this encounter Visit Diagnoses Not on filedocumented in this encounter Care Teams Forest Technology Professor Relationship Specialty Start Date End Date Shruti Ribeiro MD PCP - General Family Practice 09/28/18 documented as of this encounter
--- OUTSIDE RECORDS SUMMARY | 2024-12-06 13:02 | XMS_ITS | Encounter Summary ---
Author Organization [facility] Address 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 Gender Identity Not on file Sexual Orientation Not on file documented as of this encounter Plan of Treatment Upcoming Encounters Date Type Department Care Team (Late st Contact Info) Description 01/10/2025 11:15 AM CDT Office Visit [facility] Oncology and Hematology - [place] [address] [facility] 200 [place] [address] Gilberto Montes De Oca MD [address] [facility] [address] [place] [address] documented as of this encounter Visit Diagnoses Diagnosis Head injury, unspecified- Primary documented in this encounter Care Teams Russian Language Instructor Relationship Specialty Start Date End Date Shruti Ribeiro MD PCP - General Family Practice 09/28/18 documented as of this encounter
--- OUTSIDE RECORDS SUMMARY | 2024-12-06 13:02 | XMS_ITS | Encounter Summary ---
Author Organization [facility] Address 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 Gender Identity Not on file Sexual Orientation Not on file documented as of this encounter Plan of Treatment Upcoming Encounters Date Type Department Care Team (Late st Contact Info) Description 01/10/2025 11:15 AM CDT Office Visit [facility] Oncology and Hematology - [place] [address] [facility] [address] [place] [address] Gilberto Montes De Oca MD [address] [facility] [address] [place] [address] documented as of this encounter Procedures Procedure Name Priority Date/Time Associated Diagnosis Comments MAMMO SCREEN BILAT W OR WO CAD Routine 04/23/2008 1:29 PM CDT documented in this encounter Results * MAMMO DIGITAL SCREEN BILAT (04/23/2008 1:29 PM CDT) Anatomical Region Laterality Modality Breast Bilateral Other 04/23/2008 1:29 PM CDT Narrative 04/24/2008 4:51 PM CDT [address] [address] Admit Date: 04/23/2008 JACKLYN ORTIZ Sex: F Admit Prov: SULAIMAN PALMER Date: 1955 Primary Care Prov: SULAIMAN PALMER CMRN: [id number] Room: [facility]: [id number] IMAGING SERVICES Ordering Prov: SULAIMAN PALMER Accession Number: [id number] Interpretation BILATERAL FULL FIELD DIGITAL SCREENING MAMMOGRAM WITH CAD. Date: 04/23/2008 History: Routine Screening. Technique: Full field digital craniocaudal and mediolateral oblique projections of both breasts were obtained. Computer aided diagnosis was performed. Comparison: 04/2007 Breast Parenchymal Composition: Scattered fibroglandular densities. Findings: No suspicious mass, suspicious microcalcifications, or architectural distortion in either breast is identified. Since the prior study, there has been no significant interval change. The computer aided diagnosis detects no significant abnormality. Overall Assessment: BI-RADS category 1: Negative. Recommendation: Annual mammography is recommended. Assessment BIRADS: 1-Negative Recommendation: Normal interval follow-up Dictated by: BERYL YODER Electronically signed by: BERYL YODER 04/24/2008 16:51 Transcribed: 04/24/2008 16:48 AMK Procedure Note Beryl Yoder - 04/24/[address] [place] [address] Admit Date: 04/23/2008 JACKLYN ORTIZ Sex: F Admit Prov: SULAIMAN PALMER Date:1955 Primary Care Prov: SULAIMAN PALMER CMRN: [id number] [id number] [facility] Ordering Prov: SULAIMAN PALMER Interpretation BILATERAL FULL FIELD DIGITAL SCREENING MAMMOGRAM WITH CAD. Date: 04/23/2008 History: Routine Screening. Technique: Full field digital craniocaudal and mediolateral oblique projections of both breasts were obtained. Computer aided diagnosiswas performed. Comparison: 04/2007 Breast Parenchymal Composition: Scattered fibroglandular densities. Findings: No suspicious mass, suspicious microcalcifications, or architectural distortion in either breast is identified. Since theprior study, there has been no significant interval change. The computeraided diagnosis detects no significant abnormality. Overall Assessment: BI-RADS category 1: Negative. Recommendation: Annual mammography is recommended. Assessment BIRADS: 1-Negative Recommendation: Normal interval follow-up Dictated by: BERYL YODER Electronically signed by: BERYL YODER 04/24/2008 16:51 Transcribed: 04/24/2008 16:48 AMK Sulaiman Palmer MD MAMMO ORDERABLES Final Resul t documented in this encounter Visit Diagnoses Diagnosis Other screening mammogram documented in this encounter Care Teams Erp Manager Relationship Specialty Start Date End Date Shruti Ribeiro MD PCP - General Family Practice 09/28/18 documented as of this encounter
--- OUTSIDE RECORDS SUMMARY | 2024-12-06 13:02 | XMS_ITS | Encounter Summary ---
Author Organization [facility] Address 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 [address] [place] [address] documented as of this encounter Visit Diagnoses Not on filedocumented in this encounter Care Teams Quality Control Technician Relationship Specialty Start Date End Date Shruti Ribeiro MD PCP - General Family Practice 09/28/18 documented as of this encounter
--- OUTSIDE RECORDS SUMMARY | 2024-12-06 13:02 | XMS_ITS | Encounter Summary ---
Author Organization [facility] Address 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 Gender Identity Not on file Sexual Orientation Not on file documented as of this encounter Plan of Treatment Upcoming Encounters Date Type Department Care Team (Late st Contact Info) Description 01/10/2025 11:15 AM CDT Office Visit [facility] Oncology and Hematology - [place] [address] [facility] [address] [place] [address] Gilberto Montes De Oca MD [address] [facility] [address] [place] [address] documented as of this encounter Visit Diagnoses Not on filedocumented in this encounter Care Teams Manager Administrative Relationship Specialty Start Date End Date Shruti Ribeiro MD PCP - General Family Practice 09/28/18 documented as of this encounter
--- OUTSIDE RECORDS SUMMARY | 2024-12-06 13:02 | XMS_ITS | CONTINUITY OF CARE DOCUMENT ---
Author Name ike yamelmartha Address Unknown Organization [facility] Address [address] [place] [address] Phone [phone] Care Team Providers Care Lye Boiler Name Role Phone Giuliano Maher MD Unavailable [phone] GORGE RITTER MD Unavailable GORGE RITTER MD Unavailable PROBLEMS Condition Status Date Provider Notes CVA active Giuliano Maher MD HTN essential active Giuliano Maher MD Hyperlipidemia active Giuliano Maher MD COPD active Giuliano Maher MD PVD active Giuliano Maher MD Smoker active Giuliano Maher MD Sinus tachycardia active Giuliano Maher MD Cardiovascular screening active Giuliano sewell MD Carotid artery disease active Giuliano Maher MD ENCOUNTERS Date Type Provider Location Encounter Diag nosis - In-person encounter Office Visit Giuliano Maher MD [facility] - In-person encounter Office Visit Giuliano Maher MD [facility] - In-person encounter Office Visit Giuliano Maher MD [facility] Carotid artery disease - In-person encounter Office Visit Giuliano Maher MD [facility] - In-person encounter Office Visit [facility] - In-person encounter Office Visit Giuliano Maher MD [facility] Cardiovascular screening - In-person encounter Office Visit Giuliano Maher MD [facility] - In-person encounter Office Visit Giuliano Maher MD [facility] - In-person encounter Office Visit Giuliano Maher MD [facility] CVAHTN essentialHyperlipidemiaCOPDPVDSmokerSinus tachycardia VITAL SIGNS Date Observation Value Provider Body Mass Index (Ratio) 22.80 kg/m2 Doyle Maher MD blood pressure, cuff size regular Ke rri Monty blood pressure, diastolic 80 mm[Hg] Ke rri Monty blood pressure, systolic 124 mm[Hg] Willis ri Monty oxygen saturation, oximetry 96 % Beryl Millan pulse rate 94 /min Beryl Shamar [facility] weight E&M 150 [lb_av] Beryl Shamar [facility] height E&M 68 [in_i] Beryl Ibanez [facility] Body Mass Index (Ratio) 24.63 kg/m2 Doyle Maher MD blood pressure, diastolic 71 mm[Hg] Gabby Noyola blood pressure, systolic 105 mm[Hg] Rajinder Noyola oxygen saturation, oximetry 94 % Tatiana Noyola pulse rate 74 /min Tatiana hernandez weight E&M 162 [lb_av] Tatiana hernandez respiratory rate E&M 16 /min Sarah Noyola blood pressure, cuff size large Gabby Noyola height E&M 68 [in_i] Tatiana hernandez Body Mass Index (Ratio) 25.85 kg/m2 Doyle Maher MD blood pressure, diastolic 89 mm[Hg] Ca therine Ehsan blood pressure, systolic 144 mm[Hg] Cat herine Ehsan oxygen saturation, oximetry 96 % Glory [place] respiratory rate E&M 14 /min Catheri ne Ehsan pulse rate 84 /min Gl[place] blood pressure, cuff size regular Ca therine Ehsan weight E&M 170 [lb_av] [place] height E&M 68 [in_i] Glory Ehsan Body Mass Index (Ratio) 25.85 kg/m2 Doyle Maher MD blood pressure, diastolic 80 mm[Hg] Li [facility]kLogic blood pressure, systolic 142 mm[Hg] Lindsey [facility]Logic blood pressure, diastolic 80 mm[Hg] Sa ra Mejia blood pressure, systolic 142 mm[Hg] Tadeo a Mejia oxygen saturation, oximetry 97 % Yvette Mejia respiratory rate E&M 17 /min Yvette Si ms pulse rate 102 /min Yvette Mejia blood pressure, cuff size regular Sa ra Mejia weight E&M 170 [lb_av] Yvette Mejia height E&M 68 [in_i] Yvette Mejia Body Mass Index (Ratio) 27.21 kg/m2 Doyle Maher MD pulse rate 106 /min Debbie Block blood pressure, diastolic 90 mm[Hg] Br ittany Block blood pressure, systolic 170 mm[Hg] Ayana ttadionicio Block oxygen saturation, oximetry 97 % Debbie Block weight E&M 179 [lb_av] [facility] respiratory rate E&M 16 /min [facility] height E&M 68 [in_i] [facility] Body Mass Index (Ratio) 27.06 kg/m2 Doyle Maher MD blood pressure, diastolic 84 mm[Hg] To nsha Bhakta blood pressure, systolic 143 mm[Hg] Ton [facility] oxygen saturation, oximetry 95 % [facility] respiratory rate E&M 16 /min [facility] pulse rate 99 /min [facility] weight E&M 178 [lb_av] [facility] height E&M 68 [in_i] [facility] Body Mass Index (Ratio) 27.21 kg/m2 Doyle Maher MD pulse rate 99 /min [facility] oxygen saturation, oximetry 95 % [facility] blood pressure, diastolic 76 mm[Hg] [facility], [facility] 130 mm[Hg] Ayana seniadionicio [facility] weight E&M 179 [lb_av] [facility] respiratory rate E&M 16 /min [facility] height E&M 68 [in_i] [facility] Body Mass Index (Ratio) 27.06 kg/m2 Doyle Maher MD blood pressure, cuff size regular Cy pete Elizabeth blood pressure, diastolic 74 mm[Hg] Cy pete Elizabeth blood pressure, systolic 130 mm[Hg] Kisha Elizabeth oxygen saturation, oximetry 96 % Casie Elizabeth respiratory rate E&M 16 /min Casie Elizabeth pulse rate 98 /min Casie Amin l weight E&M 178 [lb_av] Casie Jambel l height E&M 68 [in_i] Casie Campbel l Body Mass Index (Ratio) 27.37 kg/m2 Doyle Maher MD blood pressure, cuff size regular Cr rufus Barnes blood pressure, diastolic 70 mm[Hg] Cr rufus Barnes blood pressure, systolic 110 mm[Hg] Cry stal Cameron oxygen saturation, oximetry 96 % Trish Barnes respiratory rate E&M 17 /min Trish Barnes pulse rate 83 /min Trish hodgson blood pressure, resting Yes Trinh omaira Barnes weight E&M 180 [lb_av] Trish hodgson height E&M 68 [in_i] Trish hodgson ALLERGIES No Known Drug Allergies RESULTS Date Observation Value Provider Reference Range Interpretation Location prothrombin time (patient) 9.6 s [facility] 9.0-11.5 Normal international normalized ratio (INR) 0.9 [facility] Normal basophils as percent of blood leukocytes 0.8 % [facility] Normal eosinophils as percent of blood leukocytes 0.7 % [facility] Normal monocyte count, blood 7.6 % [facility] Normal lymphocyte count, blood 41.9 % [facility] Normal neutrophils as percent of blood leukocytes 49 % [facility] Normal basophils, absolute, manual 95 cells/mcL [facility] 0-200 Normal eosinophils, absolute, manual 83 cells/mcL [facility] 15-500 Normal monocytes, absolute, manual 904 cells/mcL [facility] 200-950 Normal lymphocytes, absolute 4986 CELLS/UL [facility] 850-3900 High Absolute Neutrophil count 5831 cells/mcL [facility] 3434-9679 Normal mean platelet volume 9.8 fL [facility] 7.5-12.5 Normal platelet count 293 THOUSAND/UL [facility] 140-400 Normal red blood cell distribution width 13.7 % [facility] 11.0-15.0 Normal mean corpuscular hemoglobin concentration, RBC 34.1 G/DL [facility] 32.0-36.0 Normal mean corpuscular hemoglobin, RBC 30.0 pg [facility] 27.0-33.0 Normal mean corpuscular volume, RBC 87.8 fL [facility] 80.0-100.0 Normal hematocrit, blood 49.8 % [facility] 35.0-45.0 High hemoglobin electrophoresis, blood 17.0 [facility] 11.7-15.5 High erythrocyte (RBC) count 5.67 MILLION/UL [facility] 3.80-5.10 High leukocyte (white blood cells) count, blood 11.9 THOUSAND/UL [facility] 3.8-10.8 High calcium, serum 9.8 mg/dL [facility] 8.6-10.4 Normal carbon dioxide, venous blood 27 mmol/L [facility] 20-32 Normal chloride, serum 103 mmol/L [facility] 98-110 Normal potassium, serum 4.3 mmol/L [facility] 3.5-5.3 Normal sodium, serum 140 mmol/L [facility] 135-146 Normal urea nitrogen/creatinine ratio, serum NOT APPLICABLE (calc) [facility] 6-22 Estimated Glomerular Filtration Rate (calc) 106 mL/min/{1.73_ m2} [facility] > OR = 60 Normal creatinine, serum 0.70 mg/dL [facility] 0.50-0.99 Normal urea nitrogen, blood 14 mg/dL [facility] 7-25 Normal blood glucose, random 91 mg/dL [facility] 65-139 Normal cholesterol, non-HDL, total 81 MG/DL (CALC) [facility] <130 Normal cholesterol/HDL ratio, serum, percent 2.8 (calc) [facility] <5.0 Normal LDL cholesterol, serum 56 MG/DL (CALC) [facility] Normal triglyceride, serum, fasting 172 mg/dL [facility] <150 High HDL cholesterol, serum 44 mg/dL [facility] > OR = 50 Low cholesterol, serum 125 mg/dL [facility] <200 Normal prothrombin time (patient) 10.4 s [facility] 9.1-12.0 international normalized ratio (INR) 1.0 [facility] 0.8-1.2 calcium, serum 9.9 mg/dL [facility] 8.7-10.3 carbon dioxide, venous blood 19 mmol/L [facility] 20-29 Low chloride, serum 106 mmol/L [facility] 96-106 potassium, serum 3.9 mmol/L [facility] 3.5-5.2 sodium, serum 142 mmol/L [facility] 054-408 7885/08 /27 urea nitrogen/creatinine ratio, serum 15 [facility] 12-28 eGFR if 91 mL/min/{1.73_ m2} [facility] >59 eGFR if not 79 mL/min/{1.73_ m2} [facility] >59 creatinine, serum 0.80 mg/dL [facility] 0.57-1.00 urea nitrogen, blood 12 mg/dL [facility] 8-27 blood glucose, random 141 mg/dL [facility] 65-99 High basophil count, absolute 0.1 x10E3/uL [facility] 0.0-0.2 Eosinophil Absolute Count 0.1 X10E3/UL [facility] 0.0-0.4 monocyte count, blood, automated 0.6 X10E3/UL [facility] 0.1-0.9 lymphocyte count, blood, automated 3.6 X10E3/UL [facility] 0.7-3.1 High Absolute Neutrophils 4.8 X10E3/UL [facility] 1.4-7.0 basophils as percent of blood leukocytes 1 % [facility] Not Estab. eosinophils as percent of blood leukocytes 1 % [facility] Not Estab. monocytes as percent of blood leukocytes 6 % [facility] Not Estab. lymphocytes as percent of blood leukocytes 39 % [facility] Not Estab. neutrophils as percent of blood leukocytes 53 % [facility] Not Estab. platelet count 296 X10E3/UL [facility] 162-590 1794/08 /27 red blood cell distribution width 13.8 % [facility] 12.3-15.4 mean corpuscular hemoglobin concentration, RBC 34.6 G/DL [facility] 31.5-35.7 mean corpuscular hemoglobin, RBC 29.4 pg [facility] 26.6-33.0 mean corpuscular volume, RBC 85 fL [facility] 79-97 hematocrit, blood 44.5 % [facility] 34.0-46.6 hemoglobin, blood 15.4 g/dL [facility] 11.1-15.9 erythrocyte (RBC) count 5.23 X10E6/UL [facility] 3.77-5.28 leukocyte count, blood 9.1 X10E3/UL [facility] 3.4-10.8 hemoglobin A1C, blood, as % of total hemoglobin 6.2 % [facility] 4.8-5.6 High prothrombin time (patient) 10.5 s [facility] 9.1-12.0 international normalized ratio (INR) 1.0 [facility] 0.8-1.2 lipoprotein, beta, serum, point, quantitative, calculated 41 mg/dL [facility] 0-99 very low density lipoproteins 23 mg/dL [facility] 5-40 HDL cholesterol, serum 41 mg/dL [facility] >39 triglyceride, serum, random 116 mg/dL [facility] 0-149 cholesterol, serum 105 mg/dL [facility] 587-938 9919/07 /09 basophil count, absolute 0.1 x10E3/uL [facility] 0.0-0.2 Eosinophil Absolute Count 0.1 X10E3/UL [facility] 0.0-0.4 monocyte count, blood, automated 0.7 X10E3/UL [facility] 0.1-0.9 lymphocyte count, blood, automated 4.2 X10E3/UL [facility] 0.7-3.1 High Absolute Neutrophils 4.6 X10E3/UL [facility] 1.4-7.0 basophils as percent of blood leukocytes 1 % [facility] Not Estab. eosinophils as percent of blood leukocytes 1 % [facility] Not Estab. monocytes as percent of blood leukocytes 7 % [facility] Not Estab. lymphocytes as percent of blood leukocytes 43 % [facility] Not Estab. neutrophils as percent of blood leukocytes 48 % [facility] Not Estab. platelet count 317 X10E3/UL [facility] [phone]/07 /09 red blood cell distribution width 13.7 % [facility] 12.3-15.4 mean corpuscular hemoglobin concentration, RBC 33.5 G/DL [facility] 31.5-35.7 mean corpuscular hemoglobin, RBC 29.3 pg [facility] 26.6-33.0 mean corpuscular volume, RBC 88 fL [facility] 79-97 hematocrit, blood 45.7 % [facility] 34.0-46.6 hemoglobin, blood 15.3 g/dL [facility] 11.1-15.9 erythrocyte (RBC) count 5.22 X10E6/UL [facility] 3.77-5.28 leukocyte count, blood 9.7 X10E3/UL [facility] 3.4-10.8 alanine aminotransferase (SGPT), serum 35 1/L [facility] 0-32 High aspartate aminotransferase (SGOT), serum 34 1/L [facility] 0-40 alkaline phosphatase, serum 116 1/L [facility] 39-117 bilirubin, serum, total 0.6 mg/dL [facility] 0.0-1.2 albumin/globulin ratio, serum 1.4 [facility] 1.2-2.2 globulin, serum 3.1 [facility] 1.5-4.5 albumin, serum 4.4 g/dL [facility] 3.6-4.8 protein, total, serum 7.5 g/dL [facility] 6.0-8.5 calcium, serum 10.1 mg/dL [facility] 8.7-10.3 carbon dioxide, venous blood 23 mmol/L [facility] 20-29 chloride, serum 104 mmol/L [facility] 96-106 potassium, serum 4.0 mmol/L [facility] 3.5-5.2 sodium, serum 144 mmol/L [facility] 415-759 9478/07 /09 urea nitrogen/creatinine ratio, serum 14 [facility] 12-28 eGFR if 74 mL/min/{1.73_ m2} [facility] >59 eGFR if not 64 mL/min/{1.73_ m2} [facility] >59 creatinine, serum 0.95 mg/dL [facility] 0.57-1.00 urea nitrogen, blood 13 mg/dL [facility] 8-27 blood glucose, random 146 mg/dL [facility] 65-99 High HISTORY OF MEDICATION USE Medication Status Instructions Dates Provider Indications Com ments amlodipine 10 mg tablet active TAKE 1 TABLET BY MOUTH EVERY DAY Beryl Millan clopidogrel 75 mg tablet active Take 1 tablet by mouth once a day Tatiana Noyola aspirin 325 mg tablet active Take 1 tablet once a day Casie Elizabeth CALCIUM 500 + D3 250-500 MG-UNIT CHEW completed - Beryl Millan Anoro Ellipta 62.5-25 mcg/actuation blister with device active Inhale 1 puff by mouth once a day Tatiana Noyola #60, 30 days supply, Prescribed by CAYDEN KELLY, Filled 08/04/2018 CILOSTAZOL 100 MG ORAL TABLET completed TK 1 T PO BID 30 MIN B OR 2 H AFTER JAKE AND DINNER - Giuliano Maher MD #60, 30 days supply, Prescribed by CAYDEN KELLY, Filled 09/23/2018 GABAPENTIN 100 MG ORAL CAPSULE completed TK 2 CS PO TID - Giuliano Maher MD #120, 20 days supply, Prescribed by CAYDEN KELLY, Filled 11/13/2018 atorvastatin 20 mg tablet active Take 1 tablet by mouth once a day Tatiana Noyola #90, 90 days supply, Prescribed by CAROL SHELDON, Filled 01/15/2019 clonidine HCl 0.2 mg tablet active Take 1 tablet by mouth twice a day Tatiana Noyola #180, 90 days supply, Prescribed by CAROL SHELDON, Filled 01/16/2019 SOCIAL HISTORY Date Observation Value Provider number of years as a smoker 45 a Tatiana Noyola smoking history, total pack/day 8perday Tatiana Noyola cigarette use yes Tatiana Cervantes nd smoking status Former smoker Tatiana Eileen bloom social history E&M S moking History: Deshaun blade is a former smoker. Giuliano Maher MD number of years as a smoker 45 a Giuliano Maher MD smoking history, total pack/day 8perday Giuliano Maher MD cigarette use yes Giuliano Maher M D smoking status Former smoker Giuliano Maher MD social history reviewed E&M revi ewed - no changes required Giuliano Maher MD number of years as a smoker 45 a Giuliano Maher MD smoking history, total pack/day 8perday Giuliano Maher MD cigarette use yes Giuliano Maher M D smoking status Former smoker Giuliano Maher MD social history reviewed E&M revi ewed - no changes required Giuliano Maher MD social history E&M S moking History: P atilsa is a former smoker. Xavi Allen social history reviewed E&M revi ewed - no changes required Xavi Allen number of years as a smoker 45 a Debbie Block smoking history, total pack/day 8perday Debbie Block cigarette use yes Debbie Block smoking status Former smoker Debbie Alfredo ck social history E&M S moking History: P atilsa is a former smoker. Giuliano Maher MD social history reviewed E&M revi ewed - no changes required Giuliano Maher MD number of years as a smoker 45 a Tonsha Bhakta smoking history, total pack/day 8perday Tonsha Bhakta cigarette use yes Tonsha Bhakta smoking status Former smoker Tonsha Bhakta social history E&M S moking History: P blade is a former smoker. Giuliano Maher MD social history reviewed E&M revi ewed - no changes required Giuliano Maher MD number of years as a smoker 45 a Debbie Zhang smoking history, total pack/day 8perday Debbie Block cigarette use yes Debbie Zhang smoking status Former smoker Debbie Alfredo ck social history E&M S moking History: P blade is a former smoker. Giuliano Maher MD social history reviewed E&M revi ewed - no changes required Giuliano Maher MD number of years as a smoker 45 a Casie Elizabeth smoking history, total pack/day 8perday Casie Elizabeth cigarette use yes Casie avilez smoking status Former smoker Casie burton alcohol use no Giuliano Maher MD smoking/tobacco cess ation, patient education and counseling yes Giuliano Maher MD number of grandchildren Giuliano Maher MD U chiquis Maher MD social history E&M S moking History: Deshaun murguia currently smokes every day. P blade has been counseled to quit. Giuliano Maher MD social history reviewed E&M revi ewed - no changes required Giuliano Maher MD smoking history, total pack/day 8perday Trish Cameron number of years as a smoker 45 a Trish Cameron cigarette use yes Trish [place] ms smoking status Current every day smoker U chiquis Maher MD FAMILY HISTORY Family Member Condition Full Brother Family History of Hy pertension: Father Family History of Hy pertension: Mother Family History of Hy pertension: INSURANCE PROVIDERS Payer name Policy type / Coverage type [place] [employer] ID [employer] Other [id number] [place] MED[employer] Medicare [id number] ADVANCE DIRECTIVES Name Date POWER OF [employer]AN Date Name Performer [id number],S,H er SVETLANA showed her left leg is fine, her right leg has a significant lesion in the SFA, but she is asymptomatic. We will continue to treat her medically. Giuliano Maher MD [id number],Giuliano Hodgson MD [id number],C,W ill give her an RPM, [place] he BP remains on the lower side. May need to reduce the meds. B P today: 105/71 P rior BP: 144/89 (10/30/2021) Labs Reviewed: C reat: 0.70 (01/23/2020) C hol: 125 (01/23/2020) HDL: 44 (01/23/2020) LDL: 56 MG/DL (CALC) (01/23/2020) T (01/23/2020) Giuliano Maher MD [id number],S, Giuliano Maher MD [id number],C,T patricia we did the ultrasound, an dit showed that there was < 50% of either side, and so we'll continue medical therapy Giuliano Maher MD [id number],S,C HOL: 125 (01/23/2020) LDL: 56 MG/DL (CALC) (01/23/2020) HDL: 44 (01/23/2020) T (01/23/2020) Her updated medication list for this problem includes: Atorvastatin Calcium 20 Mg Oral Tablet (Atorvastatin calcium) ..... Tk 1 t po qd Giuliano Maher MD [id number],C P t relapsed recently but reports quitting a couple of monhts ago. Giuliano Maher MD [id number],S, P t has developed new symptoms of L LE pain. Will repeat her SVETLANA. If her SVETLANA shows that her stents have narrowed, she may need re-intervention. Giuliano Maher MD [id number],S, B P today: 142/80 P rior BP: 170/90 (01/08/2020) Labs Reviewed: C reat: 0.70 (01/23/2020) C hol: 125 (01/23/2020) HDL: 44 (01/23/2020) LDL: 56 MG/DL (CALC) (01/23/2020) T (01/23/2020) Her updated medication list for this problem includes: Amlodipine 10 Mg Tablet (Amlodipine) Aspirin 325 Mg Oral Tablet (Aspirin) ..... Take 1 tab daily Clonidine Hcl 0.2 Mg Oral Tablet (Clonidine hcl) ..... Tk 1 t po bid Giuliano Maher MD Cardiology: H er updated medication list for this problem includes: Amlodipine 10 Mg Tablet (Amlodipine) ..... Take 1 tablet by mouth every day Clonidine Hcl 0.2 Mg Tablet (Clonidine hcl) ..... Take 1 tablet by mouth twice a day Aspirin 325 Mg Tablet (Aspirin) ..... Take 1 tablet once a day BP today: 124/80 P rior BP: 105/71 (05/08/2022) Labs Reviewed: C reat: 0.70 (01/23/2020) C hol: 125 (01/23/2020) HDL: 44 (01/23/2020) LDL: 56 MG/DL (CALC) (01/23/2020) T (01/23/2020) Giuliano Maher MD Cardiology: H er updated medication list for this problem includes: Atorvastatin 20 Mg Tablet (Atorvastatin) ..... Take 1 tablet by mouth once a day Giuliano Maher MD Cardiology Giuliano Maher MD Cardiology:Will upda te her ABIs S ome exertional pain, has h/o intervention to the SFA N o wounds Giuliano Maher MD Cardiology:Her SVETLANA s howed her left leg is fine, her right leg has a significant lesion in the SFA, but she is asymptomatic. We will continue to treat her medically. Giuliano Maher MD Cardiology Giuliano Maher MD Cardiology:Will give her an RPM, [place] he BP remains on the lower side. May need to reduce the meds. B P today: 105/71 P rior BP: 144/89 (10/30/2021) Labs Reviewed: C reat: 0.70 (01/23/2020) C hol: 125 (01/23/2020) HDL: 44 (01/23/2020) LDL: 56 MG/DL (CALC) (01/23/2020) T (01/23/2020) Giuliano Maher MD Cardiology Giuliano Maher MD Cardiology:Today we did the ultrasound, an dit showed that there was < 50% of either side, and so we'll continue medical therapy Giuliano Maher MD Cardiology:CHOL: 125 (01/23/2020) LDL: 56 MG/DL (CALC) (01/23/2020) HDL: 44 (01/23/2020) T (01/23/2020) Her updated medication list for this problem includes: Atorvastatin Calcium 20 Mg Oral Tablet (Atorvastatin calcium) ..... Tk 1 t po qd Giuliano Maher MD Cardiology: P t relapsed recently but reports quitting a couple of monhts ago. Giuliano Maher MD Cardiology: P rafa has developed new symptoms of L LE pain. Will repeat her SVETLANA. If her SVETLANA shows that her stents have narrowed, she may need re-intervention. Giuliano Maher MD Cardiology: B P today: 142/80 P rior BP: 170/90 (01/08/2020) Labs Reviewed: C reat: 0.70 (01/23/2020) C hol: 125 (01/23/2020) HDL: 44 (01/23/2020) LDL: 56 MG/DL (CALC) (01/23/2020) T (01/23/2020) Her updated medication list for this problem includes: Amlodipine 10 Mg Tablet (Amlodipine) Aspirin 325 Mg Oral Tablet (Aspirin) ..... Take 1 tab daily Clonidine Hcl 0.2 Mg Oral Tablet (Clonidine hcl) ..... Tk 1 t po bid Giuliano Maher MD Cardiology Xavi Allen Cardiology: H er updated medication list for this problem includes: Atorvastatin Calcium 20 Mg Oral Tablet (Atorvastatin calcium) ..... Tk 1 t po qd Xavi Allen Cardiology: B P today: 170/90 P rior BP: 143/84 (10/06/2019) Labs Reviewed: C reat: 0.80 (04/04/2019) C hol: 105 (02/14/2019) HDL: 41 (02/14/2019) Xavi Allen Cardiology:Pt has de veloped new symptoms of L LE pain and coldness. Will repeat her SVETLANA. If her SVETLANA shows that her stents have narrowed, she may need re-intervention. Xavi Allen Cardiology:Continues to have heaviness in the L LE. Will repeat her SVETLANA. Giuliano Maher MD Cardiology:The Patient was reenc ouraged to stop smoking. Giuliano Maher MD Cardiology: H er updated medication list for this problem includes: Atorvastatin Calcium 20 Mg Oral Tablet (Atorvastatin calcium) ..... Tk 1 t po qd Giuliano Maher MD Cardiology:Pt BP typ ically is lower than this BP today: 143/84 P rior BP: 130/76 (05/26/2019) Labs Reviewed: C reat: 0.80 (04/04/2019) C hol: 105 (02/14/2019) HDL: 41 (02/14/2019) Giuliano Maher MD Cardiology:Will arrange for herrera nary calcium score. Giuliano Maher MD Cardiology:on atorvastatin Giuliano Maher MD Cardiology: B P today: 130/76 P rior BP: 130/74 (04/03/2019) Labs Reviewed: C reat: 0.80 (04/04/2019) C hol: 105 (02/14/2019) HDL: 41 (02/14/2019) Giuliano Maher MD Cardiology:The Patient was reenc ouraged to stop smoking. Giuliano Maher MD Cardiology:s/p stent a sa/plavix s topped the pletal Giuliano Maher MD Cardiology hospital follow up :O n atorvastatin. Giuliano Maher MD Cardiology hospital follow up : B P today: 130/74 P rior BP: 110/70 (02/13/2019) Labs Reviewed: C reat: 0.95 (02/14/2019) C hol: 105 (02/14/2019) HDL: 41 (02/14/2019) Giuliano Maher MD Cardiology hospital follow up :H as quit Giuliano Maher MD Cardiology hospital follow up :In spite of medical therapy, still having significant symptoms. Have discussed intervention and she is agreeable. We will set her up for intervention. Giuliano Maher MD Cardiology:STRONGLY ENCOURAGED TO STOP SMOKING; SMOKING CESSATION TECHNIQUES DISCUSSED. Giuliano Maher MD Cardiology: B P today: 110/70 Giuliano Maher MD Cardiology:will get SVETLANA from PCP's office. if it is reduced with her sxs, would recommend an AIF. Giuliano Maher MD Date Name Arterial Duplex Bi-L ower EX Complete Echo RPM (remote patient monitoring) Arterial Duplex Bi-L ower EX Carotid Duplex Bilat eral Arterial Duplex Bi-L ower EX PROTHROMBIN TIME WIT H INR LIPID PANEL CBC (INCLUDES DIFF/P LT) BASIC METABOLIC PANE L W/EGFR PROTHROMBIN TIME WIT H INR LIPID PANEL CBC (INCLUDES DIFF/P LT) BASIC METABOLIC PANE L W/EGFR Arterial Duplex Bi-L ower EX CT, Coronary Calcium Score Arterial Duplex Bi-L ower EX Arterial Duplex Bi-L ower EX PROTHROMBIN TIME WIT H INR CBC (INCLUDES DIFF/P LT) BASIC METABOLIC PANE L W/EGFR AIF Intervention - S [facility] PROTHROMBIN TIME WIT H INR CBC (INCLUDES DIFF/P LT) HEMOGLOBIN A1c LIPID PANEL COMPREHENSIVE METABO LIC PANEL, W/EGFR HISTORY OF PROCEDURES Procedure Date Procedure Name Provider Procedure Notes S tatus Complex e/m visit add on Giuliano Maher MD completed EKG Giuliano Maher MD completed EKG Giuliano Maher MD completed EKG Giuliano Maher MD completed EKG Giuliano Maher MD completed
--- OUTSIDE RECORDS SUMMARY | 2024-12-06 13:02 | XMS_ITS | Clinical Summary ---
Author Organization [employer] [facility] Address [address] [place] [address] [place] [address] Phone Care Team Providers Care Obstetrics Teacher Name Role Phone Shruti Ribeiro MD Primary Care Provider +1- [phone] Allergies No known active allergies Medications atorvastatin (LIPITOR) 20 mg tablet Take 20 mg by mouth daily with supper. Active gabapentin (NEURONTIN) 100 mg capsule Take 100 mg by mouth 3 times daily. Active cloNIDine HCl (CATAPRES) 0.1 mg tablet Take 0.1 mg by mouth 2 times daily. Active aspirin (WILLA) 325 mg tablet Take 325 mg by mouth daily. Active cilostazol (PLETAL) 100 mg Tablet Take 100 mg by mouth 2 times daily before meals. Active tiotropium (SPIRIVA RESPIMAT) 2.5 mcg/actuation Mist Take by inhalation daily. Active amLODIPine (NORVASC) 5 mg tablet Take 5 mg by mouth 2 times daily. 1 9 Active amLODIPine (NORVASC) 10 mg tablet TAKE 1 TABLET BY MOUTH EVERY DAY 1 Active cloNIDine HCL (CATAPRES) 0.2 mg tablet TAKE 1 TABLET BY MOUTH TWICE A DAY 1 Active Anoro Ellipta 62.5-25 mcg/actuation Disk with Device USE 1 INHALATION DAILY 1 Active traZODone (DESYREL) 50 mg tablet TAKE 1 OR 2 TABLETS BY MOUTH AT BEDTIME NEEDED FOR INSOMNIA 1 Active clopidogreL (PLAVIX) 75 mg Tablet Take 75 mg by mouth daily. 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 10/05/2018 Lung mass 04/08/2010 HTN (hypertension), benign 04/03/2010 Encounters Date Type Department Care Team Description 10/25/2024 External Device Data [facility] ABSTRACTION Provider, Abstract 10/18/2024 External Device Data [facility] ABSTRACTION Provider, Abstract 10/17/2024 External Device Data [facility] ABSTRACTION Provider, Abstract 10/14/2024 External Device Data [facility] ABSTRACTION Provider, Abstract 10/14/2024 External Device Data [facility] ABSTRACTION Provider, Abstract 10/11/2024 External Device Data [facility] ABSTRACTION Provider, Abstract 10/11/2024 External Device Data [facility] ABSTRACTION Provider, Abstract 09/27/2024 External Device Data [facility] ABSTRACTION Provider, Abstract from Last 3 Months Family History Medical History Relation Name Comments Lung Cancer Father Breast Cancer Neg Hx Relation Name Status Comments Brother Father Mother Social History Tobacco Use Types Packs/Day Years Used Date Smoking Tobacco: Former Cigarettes 1 30 0 02/20/1980 - 02/19/2010 Tobacco Cessation:Counseling Given: Not Answered Alcohol Use Standard Drinks/Week Comments No 0 (1 standard drink = 0.6 oz pur e alcohol) Comments No Sex and Gender Information Value Date Recorded Sex Assigned at Not on file Legal Sex Female 4:04 AM BAKER SECOND Gender Identity Not on file Sexual Orientation Not on file Occupation Industry Job Start Date Job End Date Not on file Not on file Not on file Not on file Last Filed Vital Signs Vital Sign Reading Time Taken Comments Blood Pressure 128/72 06/22/2024 2:02 PM BAKER SECOND Pulse 94 06/22/2024 2:02 PM BAKER SECOND Temperature 36.5 C (97.7 F) 06/22/2024 2:02 PM BAKER SECOND Respiratory Rate 18 06/22/2024 2:02 PM BAKER SECOND Oxygen Saturation 94% 06/22/2024 2:0 2 PM BAKER SECOND Inhaled Oxygen Concentration - - Weight 68.5 kg (151 lb) 06/22/2024 2:02 PM BAKER SECOND pt has been dieting to lose weight Height 172.7 cm (5' 8 ) 03/23/2023 11:4 8 AM CDT Body Mass Index 22.96 03/23/2023 11:48 AM CDT Plan of Treatment Upcoming Encounters Date Type Department Care Team (Late st Contact Info) Description 01/10/2025 11:15 AM CDT Office Visit [facility] Oncology and Hematology [facility] [address] [place] [address] Gilberto Montes De Oca MD [address] [facility] [address] [place] [address] Health Maintenance Due Date Last Done Comments DTAP/TDAP/TD VACCINES (1 - Tdap) 1974 PNEUMOCOCCAL VACCINE 50+ YEA RS (1 of 2 - PCV) 1974 FIT-DNA Q 3 years 2000 FIT/FOBT Q 1 year 2000 Flex Sig/CT Colonography Q 5 years 2000 Lung Cancer Screening 2005 ZOSTER VACCINE (1 of 2) 2005 RSV VACCINE (60+ or ) (1 - Risk 60-74 years 1-dose series) 2015 BREAST CANCER SCREENING 06/10/2023 06/10/20 22, 06/10/2022, 12/12/2020, Additional history exists INFLUENZA VACCINE (#1) 2024 OSTEOPOROSIS SCREENING 07/01/2027 07/01/2022 COLORECTAL SCREENING 02/23/2033 02/23/2023 Colorectal Cancer Screening 02/23/2033 Procedures Procedure Name Priority Date/Time Associated Diagnosis Comments MAMMO SCREEN BILAT W OR WO CAD Routine 06/28/2012 9:10 AM BAKER SECOND Other screening mammogram from Last 3 Months or Most Recently Relevant to Health Maintenance Results * MAMMO DIGITAL SCREEN BILAT (06/28/2012 9:10 AM BAKER SECOND) Anatomical Region Laterality Modality Breast Bilateral Mammography 06/28/2012 9:00 AM BAKER SECOND Impressions 06/29/2012 10:15 AM BAKER SECOND IMPRESSION: No mammographic evidence of malignancy. OVERALL ASSESSMENT - BI-RADS 1 - NEGATIVE Narrative 06/29/2012 10:15 AM BAKER SECOND BILATERAL SCREENING DIGITAL MAMMOGRAMS WITH COMPUTER ASSISTED DIAGNOSIS 06/28/2012. HISTORY: Annual screening study. Comparison mammograms dated 02/13/2010 and 04/23/2008. FINDINGS: The parenchyma is moderately dense bilaterally. There is no mass, malignant calcification, lymphadenopathy or other sign of malignancy. CAD was utilized. Procedure Note Nadia Arechiga MD - 06/29/2012 BILATERAL SCREENING DIGITAL MAMMOGRAMS WITH COMPUTER ASSISTED DIAGNOSIS 06/28/2012. HISTORY: Annual screening study. Comparison mammograms dated 02/13/2010 and 04/23/2008. FINDINGS: The parenchyma is moderately dense bilaterally. There is no mass, malignant calcification, lymphadenopathy or other sign of malignancy. CAD was utilized. IMPRESSION IMPRESSION: No mammographic evidence of malignancy. OVERALL ASSESSMENT - BI-RADS 1 - NEGATIVE Sulaiman Palmer MD MAMMO ORDERABLES Final Resul t from Last 3 Months or Most Recently Relevant to Health Maintenance Insurance [employer] MEDICARE SUPPLEMENT MEDICARE PART A AND B Care Teams Obstetrics Teacher Relationship Specialty Start Date End Date Shruti Ribeiro MD PCP - General Family Practice 09/28/18
--- OUTSIDE RECORDS SUMMARY | 2024-12-06 13:02 | XMS_ITS | Encounter Summary ---
Author Organization [facility] Address 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 [address] [place] [address] Gilberto Montes De Oca MD [address] [facility] [address] [place] [address] documented as of this encounter Visit Diagnoses Not on filedocumented in this encounter Care Teams Surgery Tech Relationship Specialty Start Date End Date Shruti Ribeiro MD PCP - General Family Practice 09/28/18 documented as of this encounter
== END 2024-12-06 11:30 | disposition home or self-care (01) ==
PROVIDERS: PCP Family Medicine; Visit Provider Physician Assistant
DX: M25.562 Pain in left knee (principal); M47.896 Other spondylosis, lumbar region
CPT/HCPCS: 72100; 73562

== ENCOUNTER 2024-12-29 16:37 | Emergency (ER) | payer MEDICARE, SELFPAY ==
--- NOTE | ~2024-12-29 | XR_ITS ---
XR ankle LT min 3V Ordering provider: Ofelia Nicole NP History: . pain , swelling after injury 2 days ago . Comparison: None. FINDINGS: BONES: No acute fracture or dislocation. JOINT SPACES: The ankle mortise is normal. SOFT TISSUES: Normal. IMPRESSION: No acute osseous abnormality left ankle. Reviewed, dictated and finalized at location A.
[2024-12-29 16:47] VITALS: BP 128/67; PULSE 94; RESP 16; TEMP 36.4; O2SAT 96
--- NOTE | 2024-12-29 17:20 | ED_ITS ---
HPI - Extremity Injury (Lower) General Chief Complaint: Extremity Injury, Lower Stated Complaint: L ANKLE INJURY Time Seen by Provider: 12/29/24 17:21 Source: patient, RN notes reviewed and old records reviewed Mode of arrival: ambulatory Limitations: no limitations History of Present Illness HPI Narrative: 69-year-old female who presents to [facility] with complaints injury to her left ankle when she fell when she was getting out of her chair on Wednesday falling onto the floor. Patient reports that she has pain to the lateral aspect of her left ankle with swelling noted. Patient reports that she has taken some aspirin and has been elevating her foot, has not applied any ice to her ankle. complaint: ankle injury Onset (ago): day(s) (2) Place: home Severity scale (1-10): 6 Exacerbating factors: weight bearing and movement Treatments prior to arrival: other (aspirin and elevation) Related Data Home Medications ?Medication ?Instructions ?Recorded ?Confirmed ?Last Taken ?Type aspirin 325 mg tablet 325 mg PO DAILY 10/17/19 12/29/24 02/22/23 History biotin 10,000 mcg capsule 10,000 mcg PO DAILY 02/12/23 12/29/24 02/22/23 History cholecalciferol (vitamin D3) 10 10 mcg PO DAILY 02/12/23 12/29/24 02/22/23 History mcg (400 unit) capsule (Vitamin D3) Allergies Allergy/AdvReac Type Severity Reaction Status Date / Time No Known Allergies Allergy Verified 12/29/24 16:44 Review of Systems Review of Systems: CONSTITUTIONAL: Denies fever, chills, or sweats. EYES: Denies visual changes, redness, or discharge. ENT: Denies rhinorrhea, congestion, sore throat, or otalgia. CARDIOVASCULAR: Denies chest pain, palpitations, or edema. RESPIRATORY: Denies cough or dyspnea. GASTROINTESTINAL: Denies abdominal pain, nausea, vomiting, or diarrhea. GENITOURINARY: Denies dysuria or hematuria. SKIN: Denies rash or itching. MUSCULOSKELETAL: Denies back pain,report pain to the left lateral ankle with swelling noted, or myalgia. NEUROLOGIC: Denies headache, numbness, or weakness. PSYCHIATRIC: Denies anxiety or depression. 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, old, alterations of sensations COPD (chronic obstructive pulmonary disease) PAD (peripheral artery disease) Surgical History Surgical History S/P peripheral artery angioplasty with stent placement Hx of hysterectomy Family History Family History Mother Hypertension Cerebrovascular accident Sibling Hypertension Cerebrovascular accident Father Family history of lung cancer, Onset Age: 63 Patient's father is Social History Social History Social History: Smoking packs per day: 0.5 Smoking cigarettes per day: 10.0 Years smoked: 40 Smoking pack-years: 20.00 Smoking status: Current every day smoker Tobacco type: cigarettes Second hand tobacco smoke exposure: Yes Smoking end date: 08/09/16 Alcohol intake: never Substance use: never Substance use type: does not use Lack of Transportation: No Lack of Food: Never True Current Housing: I Have Housing Concerned About Future Housing: No Difficulty Paying Gas/Electric Bills: No Difficulty Paying for Meds: No Currently Unemployed: YES Education: Decline to Answer Difficulty w/ Childcare or Family Care: No Living arrangements: with family Occupation/Education: retired Gender identity (if verbalized by the patient): Female Sexual Orientation (if Verbalized by the Patient): Straight or Heterosexual Spiritual care concerns: No Comments At time of signature, agree with nursing past medical, surgical, social and family history. There is no relevant family history pertinent to the presenting complaint Exam Narrative: GENERAL: Well-appearing, well-nourished, and in no acute distress. HEAD: Normocephalic, atraumatic. EYES: PERRLA and EOMI. ENT: Nares clear, no rhinorrhea or epistaxis. Mucous membranes moist. NECK: Supple. no lymphadenopathy CHEST: Clear to auscultation. No respiratory distress.SAO2 96% on room air HEART: Regular rate and rhythm. No murmur heard. Normal peripheral pulses. ABDOMEN: Soft, nontender, nondistended, normal active bowel sounds. EXTREMITIES: Normal range of motion. No edema.Exception noted to left lateral ankle with swelling and pain noted to lateral aspect of ankle, palpable pedal pulse with foot warm and pink, is able to apply weight bearing to left foot with increased discomfort. SKIN: Warm, dry, no rash. NEURO: No focal deficits. Alert and oriented x3. Course Course Emergency Course: Patient is aware of diagnosis, understands and agrees to treatment plan.? Anticipatory guidance given.? Patient agrees to follow-up as directed and is aware of reasons to seek care at the emergency department. Portions of this record may have been created with voice recognition software Level of Care: Express Care Visit Vital Signs Vital signs: Vital Signs Temperature 36.4 C L 12/29/24 16:47 Pulse Rate 94 12/29/24 16:47 Respiratory Rate 16 12/29/24 16:47 Blood Pressure 128/67 12/29/24 16:47 Pulse Oximetry 96 12/29/24 16:47 Temperature 36.4 C L 12/29/24 16:47 Pulse Rate 94 12/29/24 16:47 Respiratory Rate 16 12/29/24 16:47 Blood Pressure 128/67 12/29/24 16:47 Pulse Oximetry 96 12/29/24 16:47 Reviewed MDM - Extremity Injury (Lower) Differential Diagnosis Differential diagnosis: Likely ankle sprain and strain, ankle fracture and other (pain and swelling left ankle) Medical Records Attestation: I reviewed the patient's medical records. Imaging Data Attestation: I personally reviewed and interpreted this imaging study as follows: My impression: no acute osseous abnormality left ankle Radiologist's impression: [facility] [address] [place] [address] [place] [address] XRay Report Signed Patient: Nicanor Serna : 1955 MR#: [id number] Age: 69 Acct:[id number] Loc: [facility] ADM Date: 12/29/24Attending Dr: Ordering Physician: Ofelia Nicole APRN Date of Service: 12/29/24 Procedure(s): XR ankle LT min 3V Accession Number(s): [id number] cc: Ofelia Nicole APRN; Shruti Ribeiro MD~ XR ankle LT min 3V Ordering provider: Ofelia Nicole NP History: . pain , swelling after injury 2 days ago . Comparison: None. FINDINGS: BONES: No acute fracture or dislocation. JOINT SPACES: The ankle mortise is normal. SOFT TISSUES: Normal. IMPRESSION: No acute osseous abnormality left ankle. Reviewed, dictated and finalized at location A. Please be advised this is a medical document. It is intended for [id number] communication. It is written in medical language and may contain unfamiliar abbreviations or verbiage. Medical documents are intended to carry relevant information, facts as evident, and the clinical opinion of the practitioner at the time of the encounter. This report may have been done utilizing a voice recognition system. Attempts have been made to correct errors. However, there may be uncorrected grammatical, spelling, and recognition errors present. The file time of this note does not necessarily represent the time of service. Dictated By: Boogie Zavala MD 12/29/24 1748 Signed By: <Electronically signed by Boogie Zavala MD in OV> Critical Care Time Critical Care Time Critical Care Time: No Discharge Plan Discharge Clinical Impression: Left ankle injury Qualifiers: Encounter type: initial encounter Qualified Code(s): S99.912A - Unspecified injury of left ankle, initial encounter Contusion of left ankle Qualifiers: Encounter type: initial encounter Qualified Code(s): S90.02XA - Contusion of left ankle, initial encounter Patient Disposition: Home Condition: Stable Instructions: Ankle Sprain (ED), Swollen Ankle Joint (ED) Additional Instructions: Elastic wrap or orthopedic splint as directed for comfort for the next 5-7 days Tylenol for lesser pain Ibuprofen regularly for the next 2-3 days for the inflammation Follow-up with orthopedic surgeon If any continued problem Follow-up with PCP if further problems or concerns Ice to the area 20-30 minutes 4-6 times a day Elevate above heart If your symptoms persist, change or worsen significantly before you can contact your personal physician then please, without delay, go to the emergency department for further evaluation. Follow-up with PCP in 7-10 days or sooner if needed Follow up with PCP soon in regards to your blood pressure which is elevated above threshold for referral. Blood pressure above 120/80 may indicate pre- hypertension. 128/67 Patient Language: Burmese Prescriptions: No Action amlodipine 10 mg tablet See Rx Instructions .ROUTE .COMPLEX Qty: 90 2RF Dose Instruction: TAKE 1 TABLET BY MOUTH EVERY DAY Rx Instructions: TAKE 1 TABLET BY MOUTH EVERY DAY trazodone 50 mg tablet See Rx Instructions .ROUTE .COMPLEX Qty: 90 1RF Dose Instruction: TAKE 1 TABLET BY MOUTH EVERY DAY AT BEDTIME NEEDED FOR INSOMNIA Rx Instructions: TAKE 1 TABLET BY MOUTH EVERY DAY AT BEDTIME NEEDED FOR INSOMNIA aspirin 325 mg tablet 325 mg PO DAILY biotin 10,000 mcg Capsule 10,000 mcg PO DAILY cholecalciferol (vitamin D3) [Vitamin D3] 10 mcg (400 unit) Capsule 10 mcg PO DAILY Anoro Ellipta 62.5-25 mcg/actuation blister with device 1 inh INHALATION DAILY Qty: 60 3RF sodium,potassium,mag sulfates [Suprep Bowel Prep Kit] 17.5-3.13-1.6 gram recon soln See Rx Instructions PO .COMPLEX Qty: 354 0RF Rx Instructions: TAKE DIRECTED clonidine HCl 0.2 mg tablet See Rx Instructions .ROUTE .COMPLEX Qty: 180 0RF Dose Instruction: TAKE 1 TABLET BY MOUTH TWICE A DAY Rx Instructions: TAKE 1 TABLET BY MOUTH TWICE A DAY atorvastatin 20 mg tablet See Rx Instructions .ROUTE .COMPLEX Qty: 30 0RF Dose Instruction: TAKE 1 TABLET BY MOUTH EVERY DAY Rx Instructions: TAKE 1 TABLET BY MOUTH EVERY DAY alendronate 70 mg tablet See Rx Instructions .ROUTE .COMPLEX Qty: 12 4RF Dose Instruction: TAKE 1 TABLET BY MOUTH ONCE WEEKLY Rx Instructions: TAKE 1 TABLET BY MOUTH ONCE WEEKLY clopidogrel 75 mg tablet See Rx Instructions .ROUTE .COMPLEX Qty: 90 3RF Dose Instruction: TAKE 1 TABLET BY MOUTH EVERY DAY Rx Instructions: TAKE 1 TABLET BY MOUTH EVERY DAY Follow-up/Referrals: Shruti Ribeiro MD [Primary Care Provider] - Time of Disposition: 18:20 Quality Baltazar Coma Scale Eyes: Open Verbal: Oriented and Alert Motor: Follows Commands [place] Coma Total Score: 15
== END 2024-12-29 18:20 | disposition home or self-care (01) ==
PROVIDERS: Emergency Provider Registered Nurse; PCP Family Medicine
DX: S90.02XA Contusion of left ankle, initial encounter (principal); W19.XXXA Unspecified fall, initial encounter; K76.0 Fatty (change of) liver, not elsewhere classified; I69.354 Hemiplegia and hemiparesis following cerebral infarction affecting left non-dominant side; J44.9 Chronic obstructive pulmonary disease, unspecified; I70.202 Unspecified atherosclerosis of native arteries of extremities, left leg; Z95.820 Peripheral vascular angioplasty status with implants and grafts; Z79.82 Long term (current) use of aspirin; Z87.891 Personal history of nicotine dependence
CPT/HCPCS: 73610; 99213; G0463

== ENCOUNTER 2025-02-03 12:16 | Outpatient (CLI) | payer MEDICARE, SELFPAY ==
--- NOTE | ~2025-02-03 | CT_ITS ---
EXAMINATION: CTA abd aorta runoff DATE: 02/03/2025 12:58 INDICATION: Carotid artery disease, cardiovascular screening, smoker, peripheral vascular disease. TECHNIQUE: Computed tomographic angiography (CTA) of the abdominal, pelvis, and both lower extremitie s was performed with 150 mL Omnipaque-350 intravenous contrast. Automated exposure control and iterat mindi reconstruction technique were employed. The dose-length product was 677.24 mGy-cm. COMPARISON: Ultrasound carotid duplex Doppler 12/17/2017; CT chest 12/25/2017 FINDINGS: ABDOMINAL AORTA AND ITS BRANCHES: Calcified and noncalcified plaque in the abdominal aorta. Accessory right renal artery. No severe aor tic branch vessel origin stenosis. Patent MAGDIEL. PELVIC VASCULATURE: Mostly calcified plaques in the bilateral internal and external iliac arteries, without severe stenos is. RIGHT LOWER EXTREMITY VASCULATURE: Moderate calcified atherosclerotic plaques. Moderate diffuse narrowing of the SFA. The trifurcation i s patent. 2 vessel flow below the level of the ankle. LEFT LOWER EXTREMITY VASCULATURE: Mild calcified atherosclerotic plaques. Stenting of the majority of the left superficial femoral abimael ry. The stents are patent. The trifurcation is patent. 2 vessel flow below the level of the ankle. ADDITIONAL FINDINGS: Cardiomegaly. Mild distal esophageal and gastric wall edema. Fat inclusions versus small lipomas in t he pancreas. 3.2 cm indeterminate density right midpole mass. Additional subcentimeter hypodensities in the right kidney, too small to characterize but likely representing cysts. Absent uterus. Lumbar d egenerative disc disease and facet arthropathy. Moderate central canal stenosis at L4-5 secondary to degenerative changes. IMPRESSION: Mild-moderate degrees of abdominal aortic, pelvic, and bilateral lower extremity atherosclerotic dise ase, without severe stenosis, aneurysm, dissection, or extravasation. Status post SFA stenting on the left. The stents are patent. Moderate atherosclerotic calcifications in the right SFA, with moderate diffuse narrowing. 2 vessel arterial flow below the level of the ankles. Mild esophagitis/gastritis. 3.2 cm indeterminate density right midpole mass, likely representing a proteinaceous or hemorrhagic c yst. Recommend CT or MRI without and with contrast for definitive characterization. Reviewed, dictated and finalized at location K. IMPRESSION: Mild-moderate degrees of abdominal aortic, pelvic, and bilateral lower extremit y atherosclerotic disease, without severe stenosis, aneurysm, dissection, or ex travasation. Status post SFA stenting on the left. The stents are patent. Moderate atherosclerotic calcifications in the right SFA, with moderate diffuse narrowing. 2 vessel arterial flow below the level of the ankles. Mild esophagitis/gastritis. 3.2 cm indeterminate density right midpole mass, likely representing a proteina ceous or hemorrhagic cyst. Recommend CT or MRI without and with contrast for de finitive characterization.
[2025-02-03 13:11] LABS: Estimated Glomerular Filt Rate > 60
== END 2025-02-03 12:17 | disposition home or self-care (01) ==
PROVIDERS: PCP Physician Assistant; Visit Provider Internal Medicine Cardiovascular Disease
DX: I65.29 Occlusion and stenosis of unspecified carotid artery (principal); Z13.6 Encounter for screening for cardiovascular disorders; I47.9 Paroxysmal tachycardia, unspecified; F17.200 Nicotine dependence, unspecified, uncomplicated; I70.211 Atherosclerosis of native arteries of extremities with intermittent claudication, right leg; J44.9 Chronic obstructive pulmonary disease, unspecified; E78.5 Hyperlipidemia, unspecified; I10 Essential (primary) hypertension; I63.9 Cerebral infarction, unspecified; I25.10 Atherosclerotic heart disease of native coronary artery without angina pectoris; K20.90 Esophagitis, unspecified without bleeding
CPT/HCPCS: 75635; Q9967

== ENCOUNTER 2025-04-04 08:52 | Outpatient (CLI) | payer MEDICARE, SELFPAY ==
--- NOTE | ~2025-04-04 | MM_ITS ---
EXAMINATION: MM screening [facility] BI w cindy HISTORY: Screening TECHNIQUE: Craniocaudal and mediolateral oblique 3-D tomosynthesis images were obtained and synthetic 2-D images were generated. CAD analysis was submitted and interpreted. COMPARISON: Comparison to multiple prior studies sequentially, with oldest reviewed study dated 06/25/2017. BREAST PARENCHYMAL COMPOSITION: There are scattered areas of fibroglandular density. FINDINGS: There is no evidence of suspicious mass, calcification, or architectural distortion to suggest malignancy in either breast. Scattered benign-appearing calcifications are present. IMPRESSION: 1. No mammographic evidence of malignancy. 2. Recommend routine screening mammography in one year. BI-RADS Category 2: Benign finding(s). Reviewed, dictated and finalized at location B.
--- OUTSIDE RECORDS SUMMARY | 2025-04-04 09:00 | XMS_ITS | Encounter Summary ---
Author Organization [facility] Address 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 Gender Identity Not on file Sexual Orientation Not on file documented as of this encounter Plan of Treatment Upcoming Encounters Date Type Department Care Team (Late st Contact Info) Description 05/17/2025 11:30 AM CDT Office Visit [facility] Oncology and Hematology [place] [address] [place] [address] 200 [place] [address] Gilberto Montes De Oca MD 2[address] [facility] [address] [place] [address] documented as of this encounter Visit Diagnoses Not on filedocumented in this encounter Care Teams Credit Collections Clerk Relationship Specialty Start Date End Date Tal Ibrahim MD [address] [facility] 120 [place] [address] PCP - General Family Practice 01/10/25 documented as of this encounter
--- OUTSIDE RECORDS SUMMARY | 2025-04-04 09:00 | XMS_ITS | Encounter Summary ---
Author Organization [facility] Address 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 Gender Identity Not on file Sexual Orientation Not on file documented as of this encounter Plan of Treatment Upcoming Encounters Date Type Department Care Team (Late st Contact Info) Description 05/17/2025 11:30 AM CDT Office Visit [facility] Oncology and Hematology - [place] [address] [place] [address] [facility] 200 [place] [address] Gilberto Montes De Oca MD 2227 [facility] [address] [place] [address] documented as of this encounter Visit Diagnoses Not on filedocumented in this encounter Care Teams Recessing Machine Operator Relationship Specialty Start Date End Date Tal Ibrahim MD [address] [facility] 120 [place] [address] PCP - General Family Practice 01/10/25 documented as of this encounter
--- OUTSIDE RECORDS SUMMARY | 2025-04-04 09:00 | XMS_ITS | Encounter Summary ---
Author Organization [facility] Address [address] [place] [address] Care Team Providers Care Paid Search Marketing Strategist Name Role Phone Tal Ibrahim MD Primary Care Provider [phone] Encounter Details Date Type Department Care Team (Late st Contact Info) Description 06/13/2002 Outpatient Historical [facility] Primary Care - [address] [place] [phone] Noel Virgen DO * Social History Tobacco Use Types Packs/Day Years Used Date Smoking Tobacco: Never Assessed Comments Unknown Sex and Gender Information Value Date Recorded Sex Assigned at Not on file Legal Sex Female 4:04 AM PLATFORM BEATER Gender Identity Not on file Sexual Orientation Not on file documented as of this encounter Plan of Treatment Upcoming Encounters Date Type Department Care Team (Late st Contact Info) Description 05/17/2025 11:30 AM CDT Office Visit [facility] Oncology and Hematology - [place] [address] [place] [address] 200 [place] [address] Gilberto Montes De Oca MD 2[address] [facility] [address] [place] [address] documented as of this encounter Visit Diagnoses Not on filedocumented in this encounter Care Teams Paid Search Marketing Strategist Relationship Specialty Start Date End Date Tal Ibrahim MD [address] [place] [address] [place] [address] PCP - General Family Practice 01/10/25 documented as of this encounter
--- OUTSIDE RECORDS SUMMARY | 2025-04-04 09:00 | XMS_ITS | Encounter Summary ---
Author Organization [facility] Address 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 [address] [place] [address] documented as of this encounter Visit Diagnoses Not on filedocumented in this encounter Care Teams Group Home Supervisor Relationship Specialty Start Date End Date Tal Ibrahim MD [address] [facility] 120 [place] [address] PCP - General Family Practice 01/10/25 documented as of this encounter
--- OUTSIDE RECORDS SUMMARY | 2025-04-04 09:00 | XMS_ITS | Encounter Summary ---
Author Organization [facility] Address 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 MEDICAL TECH Gender Identity Not on file Sexual Orientation Not on file documented as of this encounter Plan of Treatment Upcoming Encounters Date Type Department Care Team (Late st Contact Info) Description 05/17/2025 11:30 AM CDT Office Visit [facility] Oncology and Hematology - [place] [address] [place] [address] 200 [place] [address] Gilberto Montes De Oca MD 2[address] [facility] [address] [place] [address] documented as of this encounter Visit Diagnoses Not on filedocumented in this encounter Care Teams Insurance Billing Specialist Relationship Specialty Start Date End Date Tal Ibrahim MD [address] [facility] 120 [place] [address] PCP - General Family Practice 01/10/25 documented as of this encounter
--- OUTSIDE RECORDS SUMMARY | 2025-04-04 09:00 | XMS_ITS | Encounter Summary ---
Author Organization [facility] Address [address] [place] [address] Care Team Providers Care Clinical Pharmacologist Name Role Phone Tal Ibrahim MD Primary Care Provider [phone] Encounter Details Date Type Department Care Team (Late st Contact Info) Description 06/23/2000 Outpatient Historical [facility] Primary Care - [address] [place] [phone] Noel Virgen DO * Social History Tobacco Use Types Packs/Day Years Used Date Smoking Tobacco: Never Assessed Comments Unknown Sex and Gender Information Value Date Recorded Sex Assigned at Not on file Legal Sex Female 4:04 AM BLOOD BANK CUSTODIAN Gender Identity Not on file Sexual Orientation Not on file documented as of this encounter Plan of Treatment Upcoming Encounters Date Type Department Care Team (Late st Contact Info) Description 05/17/2025 11:30 AM CDT Office Visit [facility] Oncology and Hematology - [place] [address] [place] [address] [facility] 200 [place] [address] Gilberto Montes De Oca MD 2[address] [facility] [address] [place] [address] documented as of this encounter Visit Diagnoses Not on filedocumented in this encounter Care Teams Clinical Pharmacologist Relationship Specialty Start Date End Date Tal Ibrahim MD [address] [facility] 120 [place] [address] PCP - General Family Practice 01/10/25 documented as of this encounter
--- OUTSIDE RECORDS SUMMARY | 2025-04-04 09:00 | XMS_ITS | Encounter Summary ---
Author Organization [facility] Address 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 CONTRACTOR GENERAL BUILDING Gender Identity Not on file Sexual Orientation Not on file documented as of this encounter Plan of Treatment Upcoming Encounters Date Type Department Care Team (Late st Contact Info) Description 05/17/2025 11:30 AM CDT Office Visit [facility] Oncology and Hematology - [place] [address] [place] [address] [facility] 200 [place] [address] Gilberto Montes De Oca MD 2[address] [facility] [address] [place] [address] documented as of this encounter Visit Diagnoses Not on filedocumented in this encounter Care Teams Tag Writer Relationship Specialty Start Date End Date Tal Ibrahim MD [address] [facility] 120 [place] [address] PCP - General Family Practice 01/10/25 documented as of this encounter
--- OUTSIDE RECORDS SUMMARY | 2025-04-04 09:00 | XMS_ITS | Encounter Summary ---
Author Organization [facility] Address 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 MODEL MAKER Gender Identity Not on file Sexual Orientation Not on file documented as of this encounter Plan of Treatment Upcoming Encounters Date Type Department Care Team (Late st Contact Info) Description 05/17/2025 11:30 AM CDT Office Visit [facility] Oncology and Hematology - [place] [address] [place] [address] 200 [place] [address] Gilberto Montes De Oca MD 2227 [facility] [address] [place] [address] documented as of this encounter Visit Diagnoses Not on filedocumented in this encounter Care Teams Library Supervisor Relationship Specialty Start Date End Date Tal Ibrahim MD [address] [facility] 120 [place] [address] PCP - General Family Practice 01/10/25 documented as of this encounter
--- OUTSIDE RECORDS SUMMARY | 2025-04-04 09:00 | XMS_ITS | Encounter Summary ---
Author Organization [facility] Address [address] [place] [address] Care Team Providers Care Rotary Drier Feeder Name Role Phone Tal Ibrahim MD Primary Care Provider [phone] Encounter Details Date Type Department Care Team (Late st Contact Info) Description 07/19/2000 Outpatient Historical [facility] Primary Care - [address] [place] [phone] Noel Virgen DO * Social History Tobacco Use Types Packs/Day Years Used Date Smoking Tobacco: Never Assessed Comments Unknown Sex and Gender Information Value Date Recorded Sex Assigned at Not on file Legal Sex Female 4:04 AM FOUNDATION COORDINATOR Gender Identity Not on file Sexual Orientation Not on file documented as of this encounter Plan of Treatment Upcoming Encounters Date Type Department Care Team (Late st Contact Info) Description 05/17/2025 11:30 AM CDT Office Visit [facility] Oncology and Hematology - [place] [address] [place] [address] [facility] 200 [place] [address] Gilberto Montes De Oca MD 2[address] [facility] [address] [place] [address] documented as of this encounter Visit Diagnoses Not on filedocumented in this encounter Care Teams Rotary Drier Feeder Relationship Specialty Start Date End Date Tal Ibrahim MD [address] [facility] 120 [place] [address] PCP - General Family Practice 01/10/25 documented as of this encounter
--- OUTSIDE RECORDS SUMMARY | 2025-04-04 09:00 | XMS_ITS | Encounter Summary ---
Author Organization [facility] Address [address] [place] [address] Care Team Providers Care Turkey Cleaner Name Role Phone Tal Ibrahim MD Primary Care Provider [phone] Encounter Details Date Type Department Care Team (Late st Contact Info) Description 09/26/2002 Outpatient Historical [facility] Primary Care - [address] [place] [phone] Noel Virgen DO * Social History Tobacco Use Types Packs/Day Years Used Date Smoking Tobacco: Never Assessed Comments Unknown Sex and Gender Information Value Date Recorded Sex Assigned at Not on file Legal Sex Female 4:04 AM SOLAR ENERGY SYSTEMS DESIGNER Gender Identity Not on file Sexual Orientation Not on file documented as of this encounter Plan of Treatment Upcoming Encounters Date Type Department Care Team (Late st Contact Info) Description 05/17/2025 11:30 AM CDT Office Visit [facility] Oncology and Hematology - [place] [address] [place] [address] 200 [place] [address] Gilberto Montes De Oca MD 2227 [facility] [address] [place] [address] documented as of this encounter Visit Diagnoses Not on filedocumented in this encounter Care Teams Turkey Cleaner Relationship Specialty Start Date End Date Tal Ibrahim MD [address] [facility] 120 [place] [address] PCP - General Family Practice 01/10/25 documented as of this encounter
--- OUTSIDE RECORDS SUMMARY | 2025-04-04 09:00 | XMS_ITS | Encounter Summary ---
Author Organization [facility] Address [address] [place] [address] Care Team Providers Care Broker Name Role Phone Tal Ibrahim MD Primary Care Provider [phone] Encounter Details Date Type Department Care Team (Late st Contact Info) Description 08/15/2002 Outpatient Historical [facility] Primary Care - [address] [place] [phone] Noel Virgen DO * Social History Tobacco Use Types Packs/Day Years Used Date Smoking Tobacco: Never Assessed Comments Unknown Sex and Gender Information Value Date Recorded Sex Assigned at Not on file Legal Sex Female 4:04 AM SUPERVISOR ELECTRIC Gender Identity Not on file Sexual Orientation Not on file documented as of this encounter Plan of Treatment Upcoming Encounters Date Type Department Care Team (Late st Contact Info) Description 05/17/2025 11:30 AM CDT Office Visit [facility] Oncology and Hematology - [place] [address] [place] [address] 200 [place] [address] Gilberto Montes De Oca MD 2[address] [facility] [address] [place] [address] documented as of this encounter Visit Diagnoses Not on filedocumented in this encounter Care Teams Broker Relationship Specialty Start Date End Date Tal Ibrahim MD [address] [facility] 120 [place] [address] PCP - General Family Practice 01/10/25 documented as of this encounter
--- OUTSIDE RECORDS SUMMARY | 2025-04-04 09:00 | XMS_ITS | Encounter Summary ---
Author Organization [facility] Address [address] [place] [address] Care Team Providers Care Voip Network Technician Name Role Phone Tal Ibrahim MD Primary Care Provider [phone] Encounter Details Date Type Department Care Team (Late st Contact Info) Description 04/22/2000 Outpatient Historical [facility] Primary Care - [address] [place] [phone] Noel Virgen DO * Social History Tobacco Use Types Packs/Day Years Used Date Smoking Tobacco: Never Assessed Comments Unknown Sex and Gender Information Value Date Recorded Sex Assigned at Not on file Legal Sex Female 4:04 AM MEDICAL BILLING COORDINATOR Gender Identity Not on file Sexual Orientation Not on file documented as of this encounter Plan of Treatment Upcoming Encounters Date Type Department Care Team (Late st Contact Info) Description 05/17/2025 11:30 AM CDT Office Visit [facility] Oncology and Hematology - [place] [address] [place] [address] 200 [place] [address] Gilberto Montes De Oca MD 2[address] [facility] [address] [place] [address] documented as of this encounter Visit Diagnoses Not on filedocumented in this encounter Care Teams Voip Network Technician Relationship Specialty Start Date End Date Tal Ibrahim MD [address] [facility] 120 [place] [address] PCP - General Family Practice 01/10/25 documented as of this encounter
--- OUTSIDE RECORDS SUMMARY | 2025-04-04 09:00 | XMS_ITS | Encounter Summary ---
Author Organization [facility] Address 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 Gender Identity Not on file Sexual Orientation Not on file documented as of this encounter Plan of Treatment Upcoming Encounters Date Type Department Care Team (Late st Contact Info) Description 05/17/2025 11:30 AM CDT Office Visit [facility] Oncology and Hematology - [place] 2227 [facility] 200 [place] [address] Gilberto Montes De Oca MD 2227 [facility] [address] [place] [address] documented as of this encounter [...] MD CHEMISTRY ORDERABLES Edited Performing Organization Address [facility] de Phone Number INTERFACE SYSTEM Refer [...] classifications for lipids are available on the [facility] Intranet at: [email or web address] Select: Lab Policies and Procedures,Current Select: Lipid Panel Interpretation 04/20/2007 2:59 PM CDT Filomena Prieto MD CHEMISTRY ORDERABLES Edited Performing Organization Address [facility] de Phone Number INTERFACE SYSTEM Refer [...] and non- Americans is available on the [facility] Variad Diagnosticset at: [email or web address] Select: Lab Policies and Procedures Select: Reference Ranges - GFR 04/20/2007 2:59 PM CDT us Filomena Prieto MD CHEMISTRY ORDERABLES Edited INTERFACE SYSTEM Refer to clinic/hospital department documented in this encounter Visit Diagnoses Diagnosis Other malaise and fatigue- Primary documented in this encounter Care Teams Oil Field Equipment Mechanic Relationship Specialty Start Date End Date Tal Ibrahim MD [address] [facility] 120 [place] [address] PCP - General Family Practice 01/10/25 documented as of this encounter
--- OUTSIDE RECORDS SUMMARY | 2025-04-04 09:00 | XMS_ITS | Encounter Summary ---
Author Organization [facility] Address [address] [place] [address] Care Team Providers Care Reservoir Engineering Manager Name Role Phone Tal Ibrahim MD Primary Care Provider [phone] Encounter Details Date Type Department Care Team (Late st Contact Info) Description 06/20/2003 Outpatient Historical [facility] Primary Care - [address] [place] [phone] oNel Virgen DO * Social History Tobacco Use Types Packs/Day Years Used Date Smoking Tobacco: Never Assessed Comments Unknown Sex and Gender Information Value Date Recorded Sex Assigned at Not on file Legal Sex Female 4:04 AM TOOL AND CUTTER GRINDER Gender Identity Not on file Sexual Orientation Not on file documented as of this encounter Plan of Treatment Upcoming Encounters Date Type Department Care Team (Late st Contact Info) Description 05/17/2025 11:30 AM CDT Office Visit [facility] Oncology and Hematology - [place] [address] [place] [address] 200 [place] [address] Gilberto Montes De Oca MD [address] [facility] [address] [place] [address] documented as of this encounter Visit Diagnoses Not on filedocumented in this encounter Care Teams Reservoir Engineering Manager Relationship Specialty Start Date End Date Tal Ibrahim MD [address] [facility] 120 [place] [address] PCP - General Family Practice 01/10/25 documented as of this encounter
--- OUTSIDE RECORDS SUMMARY | 2025-04-04 09:00 | XMS_ITS | Encounter Summary ---
Author Organization [facility] Address 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 BUZZSAW OPERATOR Gender Identity Not on file Sexual Orientation Not on file documented as of this encounter Plan of Treatment Upcoming Encounters Date Type Department Care Team (Late st Contact Info) Description 05/17/2025 11:30 AM CDT Office Visit [facility] Oncology and Hematology [place] [address] [place] [address] [facility] 200 [place] [address] Gilberto Montes De Oca MD [address] [facility] [address] [place] [address] documented as of this encounter Visit Diagnoses Not on filedocumented in this encounter Care Teams English Composition Teacher Relationship Specialty Start Date End Date Tal Ibrahim MD [address] [facility] 120 [place] [address] PCP - General Family Practice 01/10/25 documented as of this encounter
--- OUTSIDE RECORDS SUMMARY | 2025-04-04 09:00 | XMS_ITS | Encounter Summary ---
Author Organization [facility] Address [address] [place] [address] Care Team Providers Care Advertising Dispatch Clerk Name Role Phone Tal Ibrahim MD Primary Care Provider [phone] Encounter Details Date Type Department Care Team (Late st Contact Info) Description 04/20/2007 Outpatient Historical [facility] ConnerFliomena corcoran MD [address] [place] [address] Other Screening Mammogram (Primary Dx) Social History Tobacco Use Types Packs/Day Years Used Date Smoking Tobacco: Never Assessed Comments Unknown Sex and Gender Information Value Date Recorded Sex Assigned at Not on file Legal Sex Female 4:04 AM INFORMATION SYSTEMS SPECIALIST Gender Identity Not on file Sexual Orientation Not on file documented as of this encounter Plan of Treatment Upcoming Encounters Date Type Department Care Team (Late st Contact Info) Description 05/17/2025 11:30 AM CDT Office Visit [facility] Oncology and Hematology - [place] [address] [facility] 200 [place] [address] Gilberto Montes De Oca MD 2[address] [facility] [address] [place] [address] documented as of this encounter Visit Diagnoses Diagnosis Other screening mammogram- Primary documented in this encounter Care Teams Advertising Dispatch Clerk Relationship Specialty Start Date End Date Tal Ibrahim MD [address] [facility] 120 [place] [address] PCP - General Family Practice 01/10/25 documented as of this encounter
--- OUTSIDE RECORDS SUMMARY | 2025-04-04 09:00 | XMS_ITS | Encounter Summary ---
Author Organization [facility] Address [address] [place] [address] Care Team Providers Care Home Health Billing Specialist Name Role Phone Tal Ibrahim MD Primary Care Provider [phone] Encounter Details Date Type Department Care Team (Latest Contact Info) Description 06/21/2002 Outpatient Historical [facility] Noel Virgen DO * HEAD INJURY UNSPECIFIED (Primary Dx) Social History Tobacco Use Types Packs/Day Years Used Date Smoking Tobacco: Never Assessed Comments Unknown Sex and Gender Information Value Date Recorded Sex Assigned at Not on file Legal Sex Female 4:04 AM SALVAGE DETERMINER Gender Identity Not on file Sexual Orientation Not on file documented as of this encounter Plan of Treatment Upcoming Encounters Date Type Department Care Team (Late st Contact Info) Description 05/17/2025 11:30 AM CDT Office Visit [facility] Oncology and Hematology - [place] [address] [facility] 200 [place] [address] Gilberto Montes De Oca MD 2[address] [facility] [address] [place] [address] documented as of this encounter Visit Diagnoses Diagnosis Head injury, unspecified- Primary documented in this encounter Care Teams Home Health Billing Specialist Relationship Specialty Start Date End Date Tal Ibrahim MD [address] [facility] 120 [place] [address] PCP - General Family Practice 01/10/25 documented as of this encounter
--- OUTSIDE RECORDS SUMMARY | 2025-04-04 09:00 | XMS_ITS | Encounter Summary ---
Author Organization [facility] Address 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 Gender Identity Not on file Sexual Orientation Not on file documented as of this encounter Plan of Treatment Upcoming Encounters Date Type Department Care Team (Late st Contact Info) Description 05/17/2025 11:30 AM CDT Office Visit [facility] Oncology and Hematology - [place] [address] 200 [place] [address] Gilberto Montes De Oca MD [address] [facility] [address] [place] [address] documented as of this encounter Visit Diagnoses Not on filedocumented in this encounter Care Teams Database Modeler Relationship Specialty Start Date End Date Tal Ibrahim MD [address] [facility] 120 [place] [phone] PCP - General Family Practice 01/10/25 documented as of this encounter
--- OUTSIDE RECORDS SUMMARY | 2025-04-04 09:00 | XMS_ITS | Encounter Summary ---
Author Organization [facility] Address 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 [address] [place] [address] documented as of this encounter Visit Diagnoses Not on filedocumented in this encounter Care Teams Associate Spa Director Relationship Specialty Start Date End Date Tal Ibrahim MD [address] [facility] 120 [place] [address] PCP - General Family Practice 01/10/25 documented as of this encounter
--- OUTSIDE RECORDS SUMMARY | 2025-04-04 09:00 | XMS_ITS | Clinical Summary ---
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 [address] [place] [address] Gilberto Montes De Oca MD 01/22/2025 Telephone [facility] Oncology [facility] [address] [place] [phone] Gilberto Montes De Oca MD CT scan not done 01/10/2025 11:15 AM CDT Office Visit [facility] Oncology [place] [address] [place] [phone] Gilberto Montes De Oca MD Screening for lung cancer (Primary Dx); Secondary erythrocytosis 01/10/2025 Orders Only [facility] Oncology [facility] [address] [place] [phone] Gilberto Montes De Oca MD from Last 3 Months Family History Medical [...] on file Legal Sex Female 4:04 AM REGIONAL DIRECTOR OF FINANCE Gender Identity Not on file Sexual Orientation Not on file Occupation Industry Job Start Date Job End Date Not on file Not on file Not on file Not on file Last Filed Vital Signs Vital Sign Reading Time Taken Comments Blood Pressure 112/68 01/10/2025 11:10 AM CDT Pulse 88 01/10/2025 11:10 AM CDT Temperature 36.1 C (97 F) 01/10/2025 11:10 AM CDT Respiratory Rate 15 01/10/2025 11:10 AM CDT Oxygen Saturation 95% 01/10/2025 11:10 AM CDT Inhaled Oxygen Concentration - - Weight 64.5 kg (142 lb 3.2 oz) 01/10/2025 11:10 AM CDT Height 172.7 cm (5' 8) 03/23/2023 11:48 AM CDT Body Mass Index 21.62 03/23/2023 11:48 AM CDT Plan of Treatment Upcoming Encounters Date Type Department Care Team (Late st Contact Info) Description 05/17/2025 11:30 AM CDT Office Visit [facility] Oncology and Hematology [facility] 2[address] [facility] 200 [place] [address] Gilberto Montes De Oca MD [address] [facility] [address] [place] [address] Health Maintenance Due Date Last Done Comments DTAP/TDAP/TD VACCINES (1 - Tdap) 1974 PNEUMOCOCCAL VACCINE 50+ YEA RS (1 of 2 - PCV) 1974 FIT-DNA Q 3 years 2000 FIT/FOBT Q 1 year 2000 Flex Sig/CT Colonography Q 5 years 2000 ZOSTER VACCINE (1 of 2) 2005 RSV VACCINE (60+ or ) (1 - Risk 60-74 years 1-dose series) 2015 BREAST CANCER SCREENING 06/10/2023 06/10/20 22, 06/10/2022, 12/12/2020, Additional history exists INFLUENZA VACCINE (#1) 2025 OSTEOPOROSIS SCREENING 07/01/2027 07/01/2022 COLORECTAL SCREENING 02/23/2033 02/23/2023 Colorectal Cancer Screening 02/23/2033 Procedures Procedure Name Priority Date/Time Associated Diagnosis Comments CBC WITH DIFFERENTIAL Routine 01/30/2025 5:29 PM CDT CBC WITH DIFFERENTIAL Routine 01/10/2025 3:25 PM CDT MAMMO SCREEN BILAT W OR WO CAD Routine 06/28/2012 9:10 AM REGIONAL DIRECTOR OF FINANCE Other screening mammogram from Last 3 Months or Most Recently Relevant to Health Maintenance Results * CBC WITH DIFFERENTIAL (01/30/2025 5:29 PM CDT) Only the most recent of2 resultswithin the time period is included. Blood Gilberto Montes De Oca MD HEMATOLOGY ORDERABLES Final Res ult * MAMMO DIGITAL SCREEN BILAT (06/28/2012 9:10 AM REGIONAL DIRECTOR OF FINANCE) Anatomical Region Laterality Modality Breast Bilateral Mammography 06/28/2012 9:00 AM REGIONAL DIRECTOR OF FINANCE Impressions 06/29/2012 10:15 AM REGIONAL DIRECTOR OF FINANCE IMPRESSION: No mammographic evidence of malignancy. OVERALL ASSESSMENT - BI-RADS 1 - NEGATIVE Narrative 06/29/2012 10:15 AM REGIONAL DIRECTOR OF FINANCE BILATERAL SCREENING DIGITAL MAMMOGRAMS WITH COMPUTER ASSISTED [...] MEDICARE PART A AND B Care Teams Party Plan Sales Consultant Relationship Specialty Start Date End Date Tal Irbahim MD [address] [facility] 120 [place] [address] PCP - General Family Practice 01/10/25
--- OUTSIDE RECORDS SUMMARY | 2025-04-04 09:00 | XMS_ITS | Encounter Summary ---
Author Organization [facility] Address 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 Gender Identity Not on file Sexual Orientation Not on file documented as of this encounter Plan of Treatment Upcoming Encounters Date Type Department Care Team (Late st Contact Info) Description 05/17/2025 11:30 AM CDT Office Visit [facility] Oncology and Hematology - [place] [address] [place] [address] 200 [place] [address] Gilberto Montes De Oca MD [address] [facility] [address] [place] [address] documented as of this encounter Visit Diagnoses Not on filedocumented in this encounter Care Teams Film Library Clerk Relationship Specialty Start Date End Date Tal Ibrahim MD [address] [facility] 120 [place] [address] PCP - General Family Practice 01/10/25 documented as of this encounter
--- OUTSIDE RECORDS SUMMARY | 2025-04-04 09:00 | XMS_ITS | Encounter Summary ---
Author Organization [facility] Address 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 Gender Identity Not on file Sexual Orientation Not on file documented as of this encounter Plan of Treatment Upcoming Encounters Date Type Department Care Team (Late st Contact Info) Description 05/17/2025 11:30 AM CDT Office Visit [facility] Oncology and Hematology - [place] [address] [place] [address] 200 [place] [address] Gilberto Montes De Oca MD 2[address] [facility] [address] [place] [address] documented as of this encounter Visit Diagnoses Not on filedocumented in this encounter Care Teams Consumer Education Specialist Relationship Specialty Start Date End Date Tal Ibrahim MD [address] [facility] 120 [place] [address] PCP - General Family Practice 01/10/25 documented as of this encounter
--- OUTSIDE RECORDS SUMMARY | 2025-04-04 09:00 | XMS_ITS | Encounter Summary ---
Author Organization [facility] Address [address] [place] [address] Care Team Providers Care Cable Television Access Coordinator Name Role Phone Tal Ibrahim MD Primary Care Provider [phone] Encounter Details Date Type Department Care Team (Late st Contact Info) Description 04/23/2008 Outpatient Historical [facility] Sulaiman Palmer MD [address] [place] [address] [address] [place] [address] Other Screening Mammogram Social History Tobacco Use Types Packs/Day Years Used Date Smoking Tobacco: Never Assessed Comments Unknown Sex and Gender Information Value Date Recorded Sex Assigned at Not on file Legal Sex Female 4:04 AM SPECIAL NEEDS CAREGIVER Gender Identity Not on file Sexual Orientation Not on file documented as of this encounter Plan of Treatment Upcoming Encounters Date Type Department Care Team (Late st Contact Info) Description 05/17/2025 11:30 AM CDT Office Visit [facility] Oncology and Hematology - [place] [address] [facility] 200 [place] [address] Gilberto Montes De Oca MD [address] [facility] [address] [place] [address] documented as of this encounter Procedures Procedure Name Priority Date/Time Associated Diagnosis Comments MAMMO SCREEN BILAT W OR WO CAD Routine 04/23/2008 1:29 PM CDT documented in this encounter Results * MAMMO DIGITAL SCREEN BILAT (04/23/2008 1:29 PM CDT) Anatomical Region Laterality Modality Breast Bilateral Other 04/23/2008 1:29 PM CDT Narrative 04/24/2008 4:51 PM CDT [address] [address] Admit Date: 04/23/2008 JACKLYN ORTIZ Sex: F Admit Prov: SULAIMAN PALMER Date: 1955 Primary Care Prov: SULAIMAN PALMER CMRN: [id number] Room: [facility]: [id number] IMAGING SERVICES Ordering Prov: SULAIMAN PALMER Accession Number: [id number] Interpretation BILATERAL FULL FIELD DIGITAL SCREENING MAMMOGRAM [...] [facility]K Procedure Note Beryl Yoder - 04/24/[address] [place] [address] Admit Date: 04/23/2008 JACKLYN ORTIZ Sex: F Admit Prov: SULAIMAN PALMER Date:1955 Primary Care Prov: SULAIMAN PALMER CMRN: [id number] [id number] IM[facility]ING [facility] Ordering Prov: SULAIMAN PALMER Interpretation [...] mammogram documented in this encounter Care Teams Cable Television Access Coordinator Relationship Specialty Start Date End Date Tal Ibrahim MD [address] [facility] [address] [facility] 120 [place] [address] PCP - General Family Practice 01/10/25 documented as of this encounter
--- OUTSIDE RECORDS SUMMARY | 2025-04-04 09:00 | XMS_ITS | Encounter Summary ---
Author Organization [facility] Address 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 Gender Identity Not on file Sexual Orientation Not on file documented as of this encounter Plan of Treatment Upcoming Encounters Date Type Department Care Team (Late st Contact Info) Description 05/17/2025 11:30 AM CDT Office Visit [facility] Oncology and Hematology - [place] [address] [place] [address] 200 [place] [address] Gilberto Montes De Oca MD [address] [facility] [address] [place] [address] documented as of this encounter Visit Diagnoses Not on filedocumented in this encounter Care Teams Day Care Aide Relationship Specialty Start Date End Date Tal Ibrahim MD [address] [facility] 120 [place] [address] PCP - General Family Practice 01/10/25 documented as of this encounter
--- OUTSIDE RECORDS SUMMARY | 2025-04-04 09:00 | XMS_ITS | Encounter Summary ---
Author Organization [facility] Address 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 [address] [place] [address] documented as of this encounter Visit Diagnoses Not on filedocumented in this encounter Care Teams Progressive Care Manager Relationship Specialty Start Date End Date Tal Ibrahim MD [address] [facility] 120 [place] [address] PCP - General Family Practice 01/10/25 documented as of this encounter
--- OUTSIDE RECORDS SUMMARY | 2025-04-04 09:00 | XMS_ITS | Encounter Summary ---
Author Organization [facility] Address [address] [place] [address] Care Team Providers Care Vice President Of Software Development Name Role Phone Tal Ibrahim MD Primary Care Provider Encounter Details Date Type Department Care Team (Late st Contact Info) Description 04/08/[address] 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 Oncology and Hematology - [place] [address] [place] [address] 200 [place] [address] Gilberto Montes De Oca MD [address] [facility] [address] [place] [address] documented as of this encounter Visit Diagnoses Not on filedocumented in this encounter Care Teams Vice President Of Software Development Relationship Specialty Start Date End Date Tal Ibrahim MD [address] [facility] 120 [place] [address] PCP - General Family Practice 01/10/25 documented as of this encounter
--- OUTSIDE RECORDS SUMMARY | 2025-04-04 09:00 | XMS_ITS | Encounter Summary ---
Author Organization [facility] Address 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 Gender Identity Not on file Sexual Orientation Not on file documented as of this encounter Plan of Treatment Upcoming Encounters Date Type Department Care Team (Late st Contact Info) Description 05/17/2025 11:30 AM CDT Office Visit [facility] Oncology and Hematology - [place] [address] [place] [address] [address] [place] [address] Gilberto Montes De Oca MD [address] [facility] [address] [place] [address] documented as of this encounter Visit Diagnoses Not on filedocumented in this encounter Care Teams Winter Sports Manager Relationship Specialty Start Date End Date Tal Ibrahim MD [address] [facility] 120 [place] [address] PCP - General Family Practice 01/10/25 documented as of this encounter
--- OUTSIDE RECORDS SUMMARY | 2025-04-04 09:00 | XMS_ITS | Encounter Summary ---
Author Organization [facility] Address [address] [place] [address] Care Team Providers Care Golf Club Facer Name Role Phone Tal Ibrahim MD Primary Care Provider [phone] Encounter Details Date Type Department Care Team (Late st Contact Info) Description 06/27/2002 Outpatient Historical [facility] Primary Care - [address] [place] [phone] Noel Virgen DO * Social History Tobacco Use Types Packs/Day Years Used Date Smoking Tobacco: Never Assessed Comments Unknown Sex and Gender Information Value Date Recorded Sex Assigned at Not on file Legal Sex Female 4:04 AM TERMITE CONTROL SERVICE REPRESENTATIVE Gender Identity Not on file Sexual Orientation Not on file documented as of this encounter Plan of Treatment Upcoming Encounters Date Type Department Care Team (Late st Contact Info) Description 05/17/2025 11:30 AM CDT Office Visit [facility] Oncology and Hematology - [place] [address] [place] [address] [address] [place] [address] Gilberto Montes De Oca MD [address] [facility] [address] [place] [address] documented as of this encounter Visit Diagnoses Not on filedocumented in this encounter Care Teams Golf Club Facer Relationship Specialty Start Date End Date Tal Ibrahim MD [address] [facility] 120 [place] [address] PCP - General Family Practice 01/10/25 documented as of this encounter
--- OUTSIDE RECORDS SUMMARY | 2025-04-04 09:00 | XMS_ITS | Encounter Summary ---
Author Organization [facility] Address 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 Gender Identity Not on file Sexual Orientation Not on file documented as of this encounter Plan of Treatment Upcoming Encounters Date Type Department Care Team (Late st Contact Info) Description 05/17/2025 11:30 AM CDT Office Visit [facility] Oncology and Hematology - [place] [address] [place] [address] [facility] 200 [place] [address] Gilberto Montes De Oca MD [address] [facility] [address] [place] [address] documented as of this encounter Visit Diagnoses Not on filedocumented in this encounter Care Teams Plane Captain Relationship Specialty Start Date End Date Tal Ibrahim MD [address] [facility] 120 [place] [address] PCP - General Family Practice 01/10/25 documented as of this encounter
--- OUTSIDE RECORDS SUMMARY | 2025-04-04 09:00 | XMS_ITS | Encounter Summary ---
Author Organization [facility] Address [address] [place] [address] Care Team Providers Care Vice Chair Name Role Phone Tal Ibrahim MD Primary Care Provider [phone] Encounter Details Date Type Department Care Team (Late st Contact Info) Description 06/21/2002 Outpatient Historical [facility] Primary Care - [address] [place] [phone] Noel Virgen DO * Social History Tobacco Use Types Packs/Day Years Used Date Smoking Tobacco: Never Assessed Comments Unknown Sex and Gender Information Value Date Recorded Sex Assigned at Not on file Legal Sex Female 4:04 AM TAX ASSOCIATE Gender Identity Not on file Sexual Orientation Not on file documented as of this encounter Plan of Treatment Upcoming Encounters Date Type Department Care Team (Late st Contact Info) Description 05/17/2025 11:30 AM CDT Office Visit [facility] Oncology and Hematology - [place] [address] [place] [address] [address] [place] [address] Gilberto Montes De Oca MD [address] [facility] [address] [place] [address] documented as of this encounter Visit Diagnoses Not on filedocumented in this encounter Care Teams Vice Chair Relationship Specialty Start Date End Date Tal Irbahim MD [address] [facility] 120 [place] [address] PCP - General Family Practice 01/10/25 documented as of this encounter
--- OUTSIDE RECORDS SUMMARY | 2025-04-04 09:00 | XMS_ITS | Encounter Summary ---
Author Organization [facility] Address 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 Gender Identity Not on file Sexual Orientation Not on file documented as of this encounter Plan of Treatment Upcoming Encounters Date Type Department Care Team (Late st Contact Info) Description 05/17/2025 11:30 AM CDT Office Visit [facility] Oncology and Hematology - [place] [address] [place] [address] [address] [place] [address] Gilberto Montes De Oca MD [address] [facility] [address] [place] [address] documented as of this encounter Visit Diagnoses Not on filedocumented in this encounter Care Teams Returns Clerk Relationship Specialty Start Date End Date Tal Ibrahim MD [address] [facility] 120 [place] [address] PCP - General Family Practice 01/10/25 documented as of this encounter
--- OUTSIDE RECORDS SUMMARY | 2025-04-04 09:00 | XMS_ITS | Encounter Summary ---
Author Organization [facility] Address 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 Gender Identity Not on file Sexual Orientation Not on file documented as of this encounter Plan of Treatment Upcoming Encounters Date Type Department Care Team (Late st Contact Info) Description 05/17/2025 11:30 AM CDT Office Visit [facility] Oncology and Hematology - [place] [address] [place] [address] [facility] 200 [place] [address] Gilberto Montes De Oca MD [address] [facility] [address] [place] [address] documented as of this encounter Visit Diagnoses Not on filedocumented in this encounter Care Teams Group Captain Relationship Specialty Start Date End Date Tal Ibrahim MD [address] [facility] 120 [place] [address] PCP - General Family Practice 01/10/25 documented as of this encounter
--- OUTSIDE RECORDS SUMMARY | 2025-04-04 09:00 | XMS_ITS | Encounter Summary ---
Author Organization [facility] Address 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 Gender Identity Not on file Sexual Orientation Not on file documented as of this encounter Plan of Treatment Upcoming Encounters Date Type Department Care Team (Late st Contact Info) Description 05/17/2025 11:30 AM CDT Office Visit [facility] Oncology and Hematology - [place] [address] [place] [address] [address] [place] [address] Gilberto Montes De Oca MD [address] [facility] [address] [place] [address] documented as of this encounter Visit Diagnoses Not on filedocumented in this encounter Care Teams Physician Ophthalmologist Relationship Specialty Start Date End Date Tal Ibrahim MD [address] [facility] 120 [place] [address] PCP - General Family Practice 01/10/25 documented as of this encounter
--- OUTSIDE RECORDS SUMMARY | 2025-04-04 09:00 | XMS_ITS | Encounter Summary ---
Author Organization [facility] Address 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 Gender Identity Not on file Sexual Orientation Not on file documented as of this encounter Plan of Treatment Upcoming Encounters Date Type Department Care Team (Late st Contact Info) Description 05/17/2025 11:30 AM CDT Office Visit [facility] Oncology and Hematology - [place] [address] [place] [address] 200 [place] [address] Gilberto Montes De Oca MD [address] [facility] [address] [place] [address] documented as of this encounter Visit Diagnoses Not on filedocumented in this encounter Care Teams Chief Projectionist Relationship Specialty Start Date End Date Tal Ibrhaim MD [address] [facility] 120 [place] [address] PCP - General Family Practice 01/10/25 documented as of this encounter
== END 2025-04-04 08:53 | disposition home or self-care (01) ==
LOC: ANHFOHIMG 08:54
PROVIDERS: PCP Physician Assistant; Visit Provider Student in an Organized Health Care Education/Training Program
DX: Z12.31 Encounter for screening mammogram for malignant neoplasm of breast (principal); Z78.0 Asymptomatic menopausal state
CPT/HCPCS: 77063; 77067